=== PATIENT | female | born 1950 | race Caucasian/White ===

== ENCOUNTER → 2020-09-13 15:09 | Outpatient (BNVA) | payer MEDICARE, SELFPAY | PROVIDERS: PCP Internal Medicine; Visit Provider Hospitalist | DX: J44.9 Chronic obstructive pulmonary disease, unspecified (principal); I51.7 Cardiomegaly; G47.34 Idiopathic sleep related nonobstructive alveolar hypoventilation; Z79.899 Other long term (current) drug therapy | CPT/HCPCS: 99212 ==

== ENCOUNTER → 2021-03-27 10:01 | Outpatient (BNVA) | payer MEDICARE, SELFPAY | PROVIDERS: PCP Internal Medicine; Visit Provider Hospitalist | DX: J44.9 Chronic obstructive pulmonary disease, unspecified (principal); G47.33 Obstructive sleep apnea (adult) (pediatric); I51.7 Cardiomegaly; Z79.899 Other long term (current) drug therapy | CPT/HCPCS: 99212 ==

== ENCOUNTER → 2021-04-17 09:36 | Outpatient (REF) | payer MEDICARE, SELFPAY | LOC: HO.SL 09:36 | PROVIDERS: PCP Internal Medicine; Visit Provider Hospitalist | DX: G47.33 Obstructive sleep apnea (adult) (pediatric) (principal) | CPT/HCPCS: 95806 ==

== ENCOUNTER → 2021-06-03 08:53 | Outpatient (BNVA) | payer MEDICARE, SELFPAY | PROVIDERS: PCP Internal Medicine; Visit Provider Hospitalist | DX: J44.9 Chronic obstructive pulmonary disease, unspecified (principal); I51.7 Cardiomegaly; G47.33 Obstructive sleep apnea (adult) (pediatric) | CPT/HCPCS: 99212 ==

== ENCOUNTER → 2021-08-29 09:01 | Outpatient (BNVA) | payer MEDICARE, SELFPAY | PROVIDERS: PCP Internal Medicine; Visit Provider Hospitalist | DX: G47.33 Obstructive sleep apnea (adult) (pediatric) (principal); J44.9 Chronic obstructive pulmonary disease, unspecified; I51.7 Cardiomegaly | CPT/HCPCS: 99212 ==

== ENCOUNTER 2022-02-20 08:28 | Outpatient (REF) | payer MEDICARE, SELFPAY ==
--- NOTE | ~2022-02-20 | XR_ITS ---
EXAMINATION: XR CHEST CLINICAL INFORMATION: Cardiomegaly COMPARISON: None TECHNIQUE: 2 views of the chest were obtained. FINDINGS: The lungs are well-expanded and clear. The heart size and pulmonary vascularity is normal. There is moderate ventral spondylosis dorsal spine. XR/XR chest 2V IMPRESSION: No acute cardiopulmonary process seen.
== END 2022-02-20 08:29 | disposition home or self-care (01) ==
LOC: HO.XRAY 08:28
PROVIDERS: PCP Internal Medicine; Visit Provider Hospitalist
DX: I51.7 Cardiomegaly (principal)
CPT/HCPCS: 71046

== ENCOUNTER → 2022-02-28 08:52 | Outpatient (BNVA) | payer MEDICARE, SELFPAY | PROVIDERS: PCP Internal Medicine; Visit Provider Hospitalist | DX: J44.9 Chronic obstructive pulmonary disease, unspecified (principal); I51.7 Cardiomegaly; G47.33 Obstructive sleep apnea (adult) (pediatric) | CPT/HCPCS: 99212 ==

== ENCOUNTER → 2022-09-16 10:17 | Outpatient (BNVA) | payer MEDICARE, SELFPAY | PROVIDERS: PCP Internal Medicine; Visit Provider Hospitalist | DX: J44.9 Chronic obstructive pulmonary disease, unspecified (principal); I51.7 Cardiomegaly; G47.33 Obstructive sleep apnea (adult) (pediatric) | CPT/HCPCS: 99212 ==

== ENCOUNTER → 2023-01-27 08:55 | Outpatient (BNVA) | payer MEDICARE, SELFPAY | PROVIDERS: PCP Internal Medicine; Visit Provider Hospitalist | DX: J44.9 Chronic obstructive pulmonary disease, unspecified (principal); I51.7 Cardiomegaly; E66.2 Morbid (severe) obesity with alveolar hypoventilation; Z68.37 Body mass index [BMI] 37.0-37.9, adult; Z99.81 Dependence on supplemental oxygen; Z99.89 Dependence on other enabling machines and devices | CPT/HCPCS: 99212 ==

== ENCOUNTER → 2023-03-06 12:45 | Outpatient (BNVA) | payer MEDICARE, SELFPAY | PROVIDERS: PCP Internal Medicine; Visit Provider Nurse Practitioner Family | DX: J44.9 Chronic obstructive pulmonary disease, unspecified (principal); R05.9 Cough, unspecified | CPT/HCPCS: 99212 ==

== ENCOUNTER 2023-09-24 14:12 | Outpatient (AMB) | payer MEDICARE, SELFPAY ==
--- NOTE | 2023-09-24 14:33 | MHC.OFFVIS ---
Intake Vital Signs 09/24/23 14:37 Height 5 ft 1 in Weight 200 lb BMI 37.8 BP 150/80 H Pulse 84 Pulse Oximetry (%) 96 Intake Visit Reasons: cough Allergies Latex Allergy (Severe, Uncoded 03/06/23 13:09) Anaphylaxis HPI HPI Comments History of Present Illness Details The patient is a 73-year-old woman with a known history of asthma in addition to obstructive sleep apnea and obesity hypoventilation syndrome. She has been stable on Flovent and ProAir. However, her Flovent is very expensive and she cannot afford to take care. She has been noticing worsening shortness of breath having to use a rescue inhaler at least once a day. She does developed cough in addition to dyspnea on exertion. [id number]-[id number] severity. Denies any recent use of prednisone hospitalizations for any flares. At nighttime she does use oxygen. She did have an overnight oximetry demonstrating that she spent 12 minutes below 88%. Therefore, she was started on oxygen at 2 L at night and sees to be affecting beneficial. She does get this through [facility]. In addition to that she did have a chest x-ray which was personally reviewed by me demonstrating what appears to be some calcifications to the hilar lymph nodes in addition to his like increased cardiac silhouette. 09/16/2022 the patient is here for a pulmonary follow-up visit. The patient overall is doing well. She recently returned from a 2-3 week cruise. She did very well initially but then she came back and said started developing worsening cough and shortness of breath. She became very fatigue after the prolonged cruise. Now she is back to her baseline. She is using her inhaler. Because of her ongoing symptoms the patient did call and she was sent prednisone antibiotics which she has now completed. She also was treated for COVID with PACs Flovent which she tolerated well. Now she is considering another cruise sometime in the springtime to go to [facility]. She is wondering if she can tolerate such a long cruise again specially since she had a hard time with this 1. Therefore, will have her come back to our office for an evaluation prior to that cruise ship and making sure that she has all the medications available for a safe trip. She has been using the CPAP. The CPAP therapy continues to be affecting beneficial. She does use it for more than 4 hours a night. She is considering a travel CPAP. At this point the patient does not need 1 but she can always consider buying 1 and I will give her prescription. The patient also had a chest x-ray back in January 2022 demonstrating no acute disease. 01/27/2023 the patient is here for a pulmonary follow-up visit. The patient overall doing very well. She has continued to tolerate the CPAP. The CPAP therapy continues to be affecting beneficial. She does use it more than 4 hours a night. Her AHI is down to about 1.5. Therefore will continue the current settings. She likes her mask although the nasal pillows to bother her nares a little bit. The date does not bother her enough to change her mask at this time. If they do start bothering her we can try cradle mask instead. She will let me know. She continues use the inhalers with good effect. She has a planned trip to [facility] and also several cruises over the summer. She is going to be mindful about COVID-19 since she got COVID during her last trip. She will have a 95 masks will be careful with crowds. She is concerned about her cough. Will give her cough medication for her to be able to use effectively specially when she is traveling and also during the daytime. 09/24/2023 the patient is here for pulmonary follow-up visit. Overall she is feeling better. She went on 3 [place] back to back and she did get sick when she was on her last screws. She went to seek medical care at the [facility] medical consult clinic. She was given nebulized therapy in addition to additional medications. She overall feels better. She is continues uses Symbicort twice a day. Still still having a dry cough and sometimes some chest tightness. Will go ahead and optimize respiratory therapy from Symbicort to Breztri at this time. In addition to that she does have her albuterol and has a rescue nebulizer that she can use as needed. She already got vaccinated for pneumonia and also COVID and flu. She does need to get her ARDS the vaccine. I did encourage her to wait to next week to make sure that she was fully better before doing so. [facility] Medical History (Updated 03/06/23 @ 13:46 by Anita Lagos NP) Hyperlipidemia Hypertension, essential Diabetes mellitus type 2, controlled SACHIN (obstructive sleep apnea) Nocturnal hypoxemia Cardiomegaly Asthma-COPD overlap syndrome Family History (Updated 09/13/20 @ 15:49 by Lico Castillo MD) Other SACHIN (obstructive sleep apnea) Social History (Updated 03/27/21 @ 10:12 by Cyndee Coker Reina) Patient Tobacco Use Status: Never used Tobacco Review of Systems Const Denies daytime sleepiness, Denies night sweats and Reports weight gain ENT Denies change in voice, Denies lip swelling, Denies mouth pain, Reports nasal congestion, Reports nasal discharge and Denies tongue swelling Card Denies chest pain and Denies dyspnea on exertion Resp Reports cough, Denies dyspnea on exertion and Denies wheezing GI Denies abdominal pain Musc Denies no additional complaints Neuro Denies Neuro-related abnormal movements Psych Denies no additional complaints Aly/Lymph Denies easy bleeding and Denies lymphadenopathy Aller/Immun Denies lip swelling, Denies tongue swelling and Denies wheezing Physical Exam Vital Signs: Last Vital Signs Pulse 84 09/24/23 14:37 BP 150/80 H 09/24/23 14:37 Pulse Ox 96 09/24/23 14:37 BMI result Body Mass Index 37.8 Const General: alert Eyes Pupils: Equal, round and reactive pupils present Neck Neck: Yes normal visual inspection, Yes full ROM and Yes no lymphadenopathy Chest Chest palpation & inspection: normal inspection of the chest Resp Auscultation: no rhonchi, no wheezes and diminished lung sounds Cardio Rate: regular rate Rhythm: regular rhythm Heart sounds: S1 normal heart sound present and S2 normal heart sound present GI Palpation (GI): Soft to palpation and nontender Auscultation: normal bowel sounds Skin General skin exam: rashes and/or lesions noted Neuro Cranial nerves: Yes Equal, round and reactive pupils present Assessment & Plan Assessment & Plan (1) Asthma-COPD overlap syndrome: Code(s): J44.9 - Chronic obstructive pulmonary disease, unspecified (2) SACHIN (obstructive sleep apnea): Code(s): G47.33 - Obstructive sleep apnea (adult) (pediatric) Plan Continue APAP therapy hold Symbicort start Breztri Allergy therapy as needed cough medicines SARAH as needed F/U 6 months Medications: New jkrklwfkta-bgdpapit-amwsgljrcl 160-9-4.8 mcg/actuation (Breztri Aerosphere) 2 inhalations inhalation BID 30 days 10.7 grams 1RF Refilled albuterol sulfate 2.5 mg (3 mL) inhalation Q4H PRN 180 mL 11RF shortness of breath or wheezing J44.9 - Chronic obstructive pulmonary disease, unspecified albuterol sulfate 90 mcg/actuation 2 puffs PO Q6H PRN 1 ea 11RF for wheezing Coding Level of Care Code Est Pt Level 4 (94086) Diagnoses Asthma-COPD overlap syndrome J44.9 SACHIN (obstructive sleep apnea) G47.33 Time Spent (min) 16
[2023-09-24 14:37] VITALS: BP 150/80; PULSE 84; O2SAT 96; BMI 37.8
== END 2023-09-24 14:59 | disposition home or self-care (01) ==
PROVIDERS: PCP Internal Medicine; Visit Provider Hospitalist
DX: J44.9 Chronic obstructive pulmonary disease, unspecified (principal); G47.33 Obstructive sleep apnea (adult) (pediatric)
CPT/HCPCS: 99214

== ENCOUNTER → 2023-09-24 14:12 | Outpatient (BNVA) | payer MEDICARE, SELFPAY | PROVIDERS: PCP Internal Medicine; Visit Provider Hospitalist | DX: J44.9 Chronic obstructive pulmonary disease, unspecified (principal); G47.33 Obstructive sleep apnea (adult) (pediatric); G47.36 Sleep related hypoventilation in conditions classified elsewhere; I10 Essential (primary) hypertension | CPT/HCPCS: 99212 ==

== ENCOUNTER 2024-09-20 09:44 | Outpatient (AMB) | payer MEDICARE, SELFPAY ==
--- NOTE | 2024-09-20 09:49 | MHC.OFFVIS ---
Vital Signs 09/20/24 09:50 Height 5 ft 1 in Weight 192 lb 14.472 oz BMI 36.4 BP 130/70 Blood Pressure Location Rt brachial Position Sitting Pulse 82 Pulse Source Pulse Oximeter Pulse Oximetry (%) 98 Oxygen Delivery Method Room Air Intake Visit Reasons: dry cough Professional System Administrator Required: No Accompanied by: Self / Same As Patient Allergies Latex Allergy (Severe, Uncoded 09/20/24 09:55) Anaphylaxis Medication List - Last Reconciled 09/20/24 by Keturah Rios LPN albuterol sulfate 2.5 mg (3 mL) inhalation Q4H PRN albuterol sulfate 90 mcg/actuation 2 puffs PO Q6H PRN benzonatate 200 mg PO BID PRN 30 days oovhradvxw-kgxahlxi-xoujezkcqa 160-9-4.8 mcg/actuation (Breztri Aerosphere) 2 inhalations PO BID cholecalciferol (vitamin D3) 25 mcg PO DAILY codeine-guaifenesin 10-100 mg/5 mL 10 mL PO Q6H PRN 10 days dulaglutide (Trulicity) mg subcut epinephrine subcut ONCE PRN fexofenadine 60 mg PO BID PRN hydrochlorothiazide 25 mg PO DAILY lorazepam 0.5 mg PO BEDTIME PRN lorazepam 1 mg PO losartan 50 mg PO DAILY metformin 2,000 mg PO DAILY nebulizers As directed nirmatrelvir-ritonavir 300 mg (150 mg x 2)-100 mg (Paxlovid) take TWO 150 mg tablets of nirmatrelvir with ONE 100 mg tablet of ritonavir twice daily for 5 days PO 5 days pravastatin 40 mg PO DAILY Symbicort 160-4.5 mcg/actuation (budesonide-formoterol) 2 puffs PO BID NS HPI Comments Details: The patient is a 74-year-old woman with a known history of asthma in addition to obstructive sleep apnea and obesity hypoventilation syndrome. She has been stable on Flovent and ProAir. However, her Flovent is very expensive and she cannot afford to take care. She has been noticing worsening shortness of breath having to use a rescue inhaler at least once a day. She does developed cough in addition to dyspnea on exertion. Lzkw-qw-npnlneew severity. Denies any recent use of prednisone hospitalizations for any flares. At nighttime she does use oxygen. She did have an overnight oximetry demonstrating that she spent 12 minutes below 88%. Therefore, she was started on oxygen at 2 L at night and sees to be affecting beneficial. She does get this through [facility] [place]. In addition to that she did have a chest x-ray which was personally reviewed by me demonstrating what appears to be some calcifications to the hilar lymph nodes in addition to his like increased cardiac silhouette. 09/16/2022 the patient is here for a pulmonary follow-up visit. The patient overall is doing well. She recently returned from a 2-3 week cruise. She did very well initially but then she came back and said started developing worsening cough and shortness of breath. She became very fatigue after the prolonged cruise. Now she is back to her baseline. She is using her inhaler. Because of her ongoing symptoms the patient did call and she was sent prednisone antibiotics which she has now completed. She also was treated for COVID with PACs Flovent which she tolerated well. Now she is considering another cruise sometime in the to go to [facility]. She is wondering if she can tolerate such a long cruise again specially since she had a hard time with this 1. Therefore, will have her come back to our office for an evaluation prior to that cruise ship and making sure that she has all the medications available for a safe trip. She has been using the CPAP. The CPAP therapy continues to be affecting beneficial. She does use it for more than 4 hours a night. She is considering a travel CPAP. At this point the patient does not need 1 but she can always consider buying 1 and I will give her prescription. The patient also had a chest x-ray back in January 2022 demonstrating no acute disease. 01/27/2023 the patient is here for a pulmonary follow-up visit. The patient overall doing very well. She has continued to tolerate the CPAP. The CPAP therapy continues to be affecting beneficial. She does use it more than 4 hours a night. Her AHI is down to about 1.5. Therefore will continue the current settings. She likes her mask although the nasal pillows to bother her nares a little bit. The date does not bother her enough to change her mask at this time. If they do start bothering her we can try cradle mask instead. She will let me know. She continues use the inhalers with good effect. She has a planned trip to [facility] and also several cruises over the summer. She is going to be mindful about COVID-19 since she got COVID during her last trip. She will have a 95 masks will be careful with crowds. She is concerned about her cough. Will give her cough medication for her to be able to use effectively specially when she is traveling and also during the daytime. 09/24/2023 the patient is here for pulmonary follow-up visit. Overall she is feeling better. She went on 3 [place] back to back and she did get sick when she was on her last screws. She went to seek medical care at the [facility] medical consult clinic. She was given nebulized therapy in addition to additional medications. She overall feels better. She is continues uses Symbicort twice a day. Still still having a dry cough and sometimes some chest tightness. Will go ahead and optimize respiratory therapy from Symbicort to Breztri at this time. In addition to that she does have her albuterol and has a rescue nebulizer that she can use as needed. She already got vaccinated for pneumonia and also COVID and flu. She does need to get her ARDS the vaccine. I did encourage her to wait to next week to make sure that she was fully better before doing so. 09/20/2024 the patient is here for pulmonary follow-up visit. The patient overall has been doing well. She did go on a cruise and was sick. She did require antibiotics during that episode. Now she is back to her baseline. She is using her inhalers with good effect. No recent imaging studies to review. In the meantime she continues use her CPAP. CPAP therapy has been affecting beneficial. She does use it for more than 4 hours a night. The patient has an adequate AHI based on her CPAP use. No need to adjust the pressures. She is wondering about a travel CPAP. At this point I did show her a few options but these would have to be costly options that she would have to buy her own. She will consider. Again was give her a prescription for 1 if she decides to by 1. She will return 6 months and will reassess her respiratory issues specially prior to her next cruise travel plans. [facility] Medical History (System 12/15/23 @ 07:36 by Jemima Camara) Hyperlipidemia Hypertension, essential Diabetes mellitus type 2, controlled SACHIN (obstructive sleep apnea) Nocturnal hypoxemia Cardiomegaly Asthma-COPD overlap syndrome Family History (System 12/15/23 @ 07:36 by Jemima Camara) Other SACHIN (obstructive sleep apnea) Social History Patient Tobacco Use Status: Never used Tobacco Review of Systems Const Denies daytime sleepiness, Denies night sweats and Reports weight gain ENT Denies change in voice, Denies lip swelling, Denies mouth pain, Reports nasal congestion, Reports nasal discharge and Denies tongue swelling Card Denies chest pain and Denies dyspnea on exertion Resp Reports cough, Denies dyspnea on exertion and Denies wheezing GI Denies abdominal pain Musc Denies no additional complaints Neuro Denies Neuro-related abnormal movements Psych Denies no additional complaints Aly/Lymph Denies easy bleeding and Denies lymphadenopathy Aller/Immun Denies lip swelling, Denies tongue swelling and Denies wheezing Physical Exam Vital Signs: Last Vital Signs Pulse 82 09/20/24 09:50 BP 130/70 09/20/24 09:50 Pulse Ox 98 09/20/24 09:50 Oxygen Delivery Method Room Air 09/20/24 09:50 BMI result Body Mass Index 36.4 Const General: alert Eyes Pupils: Equal, round and reactive pupils present Neck Neck: Yes normal visual inspection, Yes full ROM and Yes no lymphadenopathy Chest Chest palpation & inspection: normal inspection of the chest Resp Auscultation: no rhonchi, no wheezes and diminished lung sounds Cardio Rate: regular rate Rhythm: regular rhythm Heart sounds: S1 normal heart sound present and S2 normal heart sound present GI Palpation (GI): Soft to palpation and nontender Auscultation: normal bowel sounds Skin General skin exam: rashes and/or lesions noted Neuro Cranial nerves: Yes Equal, round and reactive pupils present Assessment & Plan Assessment & Plan (1) Asthma-COPD overlap syndrome: Code(s): J44.9 - Chronic obstructive pulmonary disease, unspecified Category: Medical (2) SACHIN (obstructive sleep apnea): Code(s): G47.33 - Obstructive sleep apnea (adult) (pediatric) Category: Medical Plan Continue APAP therapy hold Symbicort start Breztri Allergy therapy as needed cough medicines SARAH as needed F/U 6 months Medications: Refilled codeine-guaifenesin 10-100 mg/5 mL 10 mL PO Q6H PRN 300 mL 0RF cough 10 days Coding Level of Care Code Est Pt Level 4 (55241) Diagnoses Asthma-COPD overlap syndrome J44.9 SACHIN (obstructive sleep apnea) G47.33 Time Spent (min) 16
[2024-09-20 09:50] VITALS: BP 130/70; PULSE 82; O2SAT 98; BMI 36.4
== END 2024-09-20 10:23 | disposition home or self-care (01) ==
PROVIDERS: PCP Internal Medicine; Visit Provider Hospitalist
DX: J44.9 Chronic obstructive pulmonary disease, unspecified (principal); G47.33 Obstructive sleep apnea (adult) (pediatric)
CPT/HCPCS: 99214

== ENCOUNTER → 2024-09-20 09:44 | Outpatient (BNVA) | payer MEDICARE, SELFPAY | PROVIDERS: PCP Internal Medicine; Visit Provider Hospitalist | DX: J44.9 Chronic obstructive pulmonary disease, unspecified (principal); G47.33 Obstructive sleep apnea (adult) (pediatric); Z99.89 Dependence on other enabling machines and devices | CPT/HCPCS: 99212 ==

== ENCOUNTER 2025-03-23 09:36 | Outpatient (AMB) | payer MEDICARE, SELFPAY ==
[2025-03-23 09:42] VITALS: BP 130/76; PULSE 84; O2SAT 93; BMI 37.5
--- NOTE | 2025-03-23 09:42 | A.OFFVIS_ITS ---
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 She has been stable on Flovent and ProAir. However, her Flovent is very expensive and she cannot afford to take care. She has been noticing worsening shortness of breath having to use a rescue inhaler at least once a day. She does developed cough in addition to dyspnea on exertion. Ejjv-yx-keiyldsx severity. Denies any recent use of prednisone hospitalizations for any flares. At nighttime she does use oxygen. She did have an overnight oximetry demonstrating that she spent 12 minutes below 88%. Therefore, she was started on oxygen at 2 L at night and sees to be affecting beneficial. She does get this through [facility]. In addition to that she did have a chest x-ray which was personally reviewed by me aureliano palomaresting what appears to be some calcifications to the hilar lymph nodes in addition to his like increased cardiac silhouette. 09/16/2022 the patient is here for a pulmonary follow-up visit. The patient overall is doing well. She recently returned from a 2-3 week cruise. She did very well initially but then she came back and said started developing worsening cough and shortness of breath. She became very fatigue after the prolonged cruise. Now she is back to her baseline. She is using her inhaler. Because of her ongoing symptoms the patient did call and she was sent prednisone antibiotics which she has now completed. She also was treated for COVID with PACs Flovent which she tolerated well. Now she is considering another cruise sometime in the to go to [facility]. She is wondering if she can tolerate such a long cruise again specially since she had a hard time with this 1. Therefore, will have her come back to our office for an evaluation prior to that cruise ship and making sure that she has all the medications available for a safe trip. She has been using the CPAP. The CPAP therapy continues to be affecting beneficial. She does use it for more than 4 hours a night. She is considering a travel CPAP. At this point the patient does not need 1 but she can always consider buying 1 and I will give her prescription. The patient also had a chest x-ray back in January 2022 demonstrating no acute disease. 01/27/2023 the patient is here for a pulmonary follow-up visit. The patient overall doing very well. She has continued to tolerate the CPAP. The CPAP therapy continues to be affecting beneficial. She does use it more than 4 hours a night. Her AHI is down to about 1.5. Therefore will continue the current settings. She likes her mask although the nasal pillows to bother her nares a little bit. The date does not bother her enough to change her mask at this time. If they do start bothering her we can try cradle mask instead. She will let me know. She continues use the inhalers with good effect. She has a planned trip to [facility] and also several cruises over the summer. She is going to be mindful about COVID-19 since she got COVID during her last trip. She will have a 95 masks will be careful with crowds. She is concerned about her cough. Will give her cough medication for her to be able to use effectively specially when she is traveling and also during the daytime. 09/24/2023 the patient is here for pulmonary follow-up visit. Overall she is feeling better. She went on 3 [place] back to back and she did get sick when she was on her last screws. She went to seek medical care at the [facility]. She was given nebulized therapy in addition to additional medications. She overall feels better. She is continues uses Symbicort twice a day. Still still having a dry cough and sometimes some chest tightness. Will go ahead and optimize respiratory therapy from Symbicort to Breztri at this time. In addition to that she does have her albuterol and has a rescue nebulizer that she can use as needed. She already got vaccinated for pneumonia and also COVID and flu. She does need to get her ARDS the vaccine. I did encourage her to wait to next week to make sure that she was fully better before doing so. 09/20/2024 the patient is here for pulmonary follow-up visit. The patient overall has been doing well. She did go on a cruise and was sick. She did require antibiotics during that episode. Now she is back to her baseline. She is using her inhalers with good effect. No recent imaging studies to review. In the meantime she continues use her CPAP. CPAP therapy has been affecting beneficial. She does use it for more than 4 hours a night. The patient has an adequate AHI based on her CPAP use. No need to adjust the pressures. She is wondering about a travel CPAP. At this point I did show her a few options but these would have to be costly options that she would have to buy her own. She will consider. Again was give her a prescription for 1 if she decides to by 1. She will return 6 months and will reassess her respiratory issues specially prior to her next cruise travel plans. 03/23/2025 the patient is here for pulmonary follow-up visit. Overall the patient has been doing well. She continues uses CPAP every night. CPAP therapy has been affecting beneficial. She does use it for more than 4 hours a night. She is using a mask that sometimes feels like she is bothered by it. She wants to try new mask. I will go ahead and request an N30 I AirTouch mask kit for her so she can find her eye size. Currently she uses extra small. Will request the mask from her current [employer] company, [employer]. She will keep the same settings from the CPAP. In meantime asthma has been stable. She has not had to use her albuterol inhaler which is reassuring. Her last chest x-ray was back in 2021 which is without any acute disease or therefore no additional imaging studies warranted. She still has some shortness of breath with activity but minimal and it does get better when she rests. She will monitor closely her symptoms and they worsen she will call. Otherwise will follow-up in a year's time. [facility] Medical History (System 12/15/23 @ 07:36 by Jemima Camara) Hyperlipidemia Hypertension, essential Diabetes mellitus type 2, controlled SACHIN (obstructive sleep apnea) Nocturnal hypoxemia Cardiomegaly Asthma-COPD overlap syndrome Family History (System 12/15/23 @ 07:36 by Jemima Camara) Other SACHIN (obstructive sleep apnea) Social History Patient Tobacco Use Status: Never used Tobacco Review of Systems Const Denies daytime sleepiness, Denies night sweats and Reports weight gain ENT Denies change in voice, Denies lip swelling, Denies mouth pain, Reports nasal congestion, Reports nasal discharge and Denies tongue swelling Card Denies chest pain and Denies dyspnea on exertion Resp Reports cough, Denies dyspnea on exertion and Denies wheezing GI Denies abdominal pain Musc Denies no additional complaints Neuro Denies Neuro-related abnormal movements Psych Denies no additional complaints Aly/Lymph Denies easy bleeding and Denies lymphadenopathy Aller/Immun Denies lip swelling, Denies tongue swelling and Denies wheezing Physical Exam Vital Signs: Last Vital Signs Pulse 84 03/23/25 09:42 BP 130/76 03/23/25 09:42 Pulse Ox 93 03/23/25 09:42 Oxygen Delivery Method Room Air 03/23/25 09:42 BMI result Body Mass Index 37.5 Const General: alert Eyes Pupils: Equal, round and reactive pupils present Neck Neck: Yes normal visual inspection, Yes full ROM and Yes no lymphadenopathy Chest Chest palpation & inspection: normal inspection of the chest Resp Auscultation: no rhonchi, no wheezes and diminished lung sounds Cardio Rate: regular rate Rhythm: regular rhythm Heart sounds: S1 normal heart sound present and S2 normal heart sound present GI Palpation (GI): Soft to palpation and nontender Auscultation: normal bowel sounds Skin General skin exam: rashes and/or lesions noted Neuro Cranial nerves: Yes Equal, round and reactive pupils present Assessment & Plan Assessment & Plan (1) Asthma-COPD overlap syndrome: Code(s): J44.9 - Chronic obstructive pulmonary disease, unspecified Category: Medical (2) SACHIN (obstructive sleep apnea): Code(s): G47.33 - Obstructive sleep apnea (adult) (pediatric) Category: Medical Plan Continue APAP therapy, change mask N30i airtouch continue Breztri Allergy therapy as needed cough medicines SARAH as needed F/U 8-12 months Coding Level of Care Code Est Pt Level 4 (10976) Diagnoses Asthma-COPD overlap syndrome J44.9 SACHIN (obstructive sleep apnea) G47.33 Time Spent (min) 16
--- OUTSIDE RECORDS SUMMARY | 2025-03-23 09:55 | XMS_ITS | Clinical Summary ---
Author Organization [facility] [address] Address [address] [place] [address] Phone Care Team Providers Care Tax Manager Public Name Role Phone Candy Vera MD Primary Care Provider [phone] Allergies Active Allergy Reactions Criticality Noted Date Comments Dog Dander 03/01/2018 Latex Anaphylaxis High 11/08/2012 Medications losartan (COZAAR) 50 mg tablet TAKE 1 TABLET BY MOUTH DAILY 100 tablet 2 09/30/20 24 Active hydroCHLOROthi azide (HYDRODIURIL) 25 mg tablet TAKE 1 TABLET BY MOUTH DAILY 100 tablet 2 09/30/20 24 Active albuterol HFA (PROAIR HFA ; PROVENTIL HFA ; VENTOLIN HFA) 90 mcg/actuation inhaler Inhale 2 Puffs into the lungs every 4 hours as needed for Cough or Wheezing. 01/06/20 19 Active budesonide-gly copyr-formoter ol (Breztri Aerosphere) 160-9-4.8 mcg/actuation HFA aerosol inhaler inhaler INHALE 2 PUFFS BY MOUTH TWICE DAILY 11/30/19 24 Active calcium carbonate-vit D3-min 600 mg-10 mcg (400 unit) tablet Take 1 Tab by mouth daily. Active fluticasone propionate (FLONASE) 50 mcg/actuation nasal spray 2 Sprays by Nasal route daily. 03/01/20 18 Active LORazepam (ATIVAN) 1 mg tablet TAKE 1 TABLET BY MOUTH 1 HOUR BEFORE DENTAL APPOINTMENT. DO NOT DRIVE OR OPERATE ANY MACHINERY WHILST TAKING THIS MEDICATION 02/04/20 23 Active metFORMIN (GLUCOPHAGE) 500 mg tablet 05/10/20 24 Active semaglutide (Ozempic) 0.25 mg or 0.5 mg(2 mg/1.5 mL) injection pen Inject into the skin. Active pravastatin (PRAVACHOL) 40 mg tablet Take 1 tablet (40 mg total) by mouth at bedtime. 100 tablet 11/18/19 25 Active Accu-Chek Softclix Lancets 08/26/20 Active EPINEPHrine (EPIPEN) 0.3 mg/0.3 mL injection Inject 0.3 mL (0.3 mg total) into the thigh if needed for anaphylaxis. 2 each 2 02/28/20 Active EPINEPHrine (EpiPen 2-Shine) 0.3 mg/0.3 mL injection Inject 1 Each as directed as needed for Other (anaphylaxis) . 12/31/19 025 Discontinued EPINEPHrine (EPIPEN) 0.3 mg/0.3 mL injection Inject 0.3 mL (0.3 mg total) under the skin if needed for anaphylaxis. 2 each 2 02/25/20 25 025 Discontinued(Re order) Active Problems Problem Noted Date Diagnosed Date Multinodular goiter (nontoxic) 01/15/2025 Assessment & Plan (01/23/2025 9:31 AM EDT): Asthma 10/05/2024 Graves' disease 10/05/2024 Overview (10/05/2024): was on PTU< but off it for 4 yrs, follows with Dr Nica Taylor, in [place], [place] HTN (hypertension) 10/05/2024 Assessment & Plan (01/23/2025 9:31 AM EDT): Severe obesity (BMI 35.0-35. 9 with comorbidity) ([facility] V24, [facility] V28) 10/05/2024 Osteopenia 08/07/2022 Microalbuminuria 05/10/2019 Assessment & Plan (01/23/2025 9:31 AM EDT): Onychomycosis 05/10/2019 Allergic rhinitis due to pollen 10/05/2018 Type 2 diabetes mellitus wit h renal manifestations ([facility] V24, [facility] V28) 07/06/2018 Assessment & Plan (01/23/2025 9:31 AM EDT): Orders: Hemoglobin A1c; Future PLMD (periodic limb movement disorder) 7 Obstructive sleep apnea 01/25/2017 Overview (10/05/2024): RBMG Polysomnogram with 2 liters supplemental oxygen: Date 04/15/2017; SE 53%; SM 45%; REM 19%; RDI 10 (AHI 5), worse in REM (RDI 29 - AHI 17), Central apneas 0; Obstructive apneas 18; Mixed apneas 0; hypopneas 10; RERAs 16; average oxygen saturation 96% (lowest 93% - without saturations <88% for 5% or more of study); PLMs 98. Sleep related hypoventilatio n in conditions classified elsewhere 01/25/2017 Hyperlipidemia 04/18/2014 Assessment & Plan (01/23/2025 9:31 AM EDT): Knee arthropathy 03/10/2013 History of basal cell carcinoma (BCC) of skin Overview (01/15/2025): : facial, NE Derm History of squamous cell carcinoma Overview (01/15/2025): Colin groin Encounters Date Type Department Care Team Description 01/23/2025 8:30 AM EDT Office Visit Adult Medicine [address] [phone] Candy Vera MD Encounter for annual wellness visit (AWV) in Medicare patient (Primary Dx); Primary hypertension; Other hyperlipidemia; Type 2 diabetes mellitus with diabetic microalbuminuria, without long-term current use of insulin ([facility] V24, [facility] V28); Multinodular goiter (nontoxic); Microalbuminuria from Last 3 Months Immunizations Name Administration Dates Next Due Influenza trivalent, 0.5mL ( Fluad) 65yo and older 08/06/2023,09/23/2022,09/24/2021,09/11,08/19/2019,08/06/2018,09/24/2017 ,09/05/2015 Influenza trivalent, 0.5mL ( Fluzone High-dose) 65yo and older 08/01/2024 Pfizer (ages 12 & older) Biv alent, COVID-19 07/21/2023,02/12/2022 Pneumococcal conjugate 13 va lent (Prevnar 13, PCV13) 2mo and older 10/16/2016 Pneumococcal polysaccharide 23 valent (Pneumovax 23) 2yo and older 07/05/2013 Respiratory syncytial virus (RSV), unspecified 12/11/2023,12/11/2023 Tdap Tetanus diptheria acell ular pertussis (Boostrix; Adacel) 7yo and older 10/29/2024,02/06/2015 Zoster Live 06/26/2014 Zoster recombinant (Shingrix ) 19yo and older 08/27/2020,06/26/2020 Surgical History Surgery Date Site/Laterality Comments SCREENING MAMMOGRAM 10/06/2024 Bilateral Medical History Medical History Date Comments HTN (hypertension) Hyperlipidemia 04/18/2014 Thyroid nodule Asthma History of basal cell carcin mik (BCC) of skin : facial, NE Derm Onychomycosis 05/10/2019 Severe obesity (BMI 35.0-35. 9 with comorbidity) ([facility] V24, [facility] V28) 10/05/2018 Microalbuminuria 05/10/2019 Type 2 diabetes mellitus wit h renal manifestations ([facility] V24, [facility] V28) 07/06/2018 Sleep-related hypoventilation 01/25/2017 PLMD (periodic limb movement disorder) 03/03/2017 Obstructive sleep apnea 01/25/2017 RBMG Marko ysomnogram with 2 liters supplemental oxygen: Date 04/15/2017; SE 53%; SM 45%; REM 19%; RDI 10 (AHI 5), worse in REM (RDI 29 - AHI 17), Central apneas 0; Obstructive apneas 18; Mixed apneas 0; hypopneas 10; RERAs 16; average oxygen saturation 96% (lowest 93% - without saturations <88% for 5% or more of study); PLMs 98. Nocturnal hypoxia 10/05/2018 Allergic rhinitis due to pollen 10/05/2018 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 oxygen therapy 03/03/2017 History of squamous cell carcinoma 05/10/2019 L groin Graves' disease 10/05/2024 was on PTU< but off it for 4 yrs, follows with Dr Nica Taylor, in [place], [place] Family History Medical History Relation Name Comments Other: multiple sclerosis Brother Hypertension Mother cholesterol Thyroid disease Sister 1 sister has DM and HTN Breast cancer Neg Hx Colon cancer Neg Hx Ovarian cancer Neg Hx Relation Name Status Comments Brother Mother Sister Social History Tobacco Use Types Packs/Day Years Used Date Smoking Tobacco: Never Smokeless Tobacco: Never Tobacco Cessation:Counseling Given: Not Answered Alcohol Use Standard Drinks/Week Comments Yes 0 (1 standard drink = 0.6 oz pur e alcohol) Housing Instability Answer Date Recorde d Are you worried that in the next 2 months you may not have stable housing? No 01/16/2025 Food Access & Nutrition Answer Date Rec orded Do you have access to a vari ety of food including fruits and vegetables? Yes 01/16/2025 Access to Healthcare Answer Date Record ed Within the last 3 months, ho w many times did you visit the emergency department for your medical care? 0 01/16/2025 Health Literacy Answer Date Recorded How often do you need to hav e someone help you when you read instructions, pamphlets, or other written material from your doctor or pharmacy? Rarely 01/16/2025 Caregiver: How often do you need to have someone help you when you read instructions, pamphlets, or other written material from your doctor or pharmacy? Not on file 01/16/2025 Financial Risk Answer Date Recorded How hard is it for you to pa y for the very basics like food, housing, medical care, and air conditioning / heating? Not very hard 01/16/2025 Transportation Answer Date Recorded Has the lack of transportati on kept you from meetings, work, or from getting things needed for daily living? No Has the lack of transportati on kept you from medical appointments or from getting medications? No 01/16/2025 Social Isolation Answer Date Recorded How often do you feel lonely or isolated from th ose around you? Never 01/16/2025 Food Risk Answer Date Recorded Within the past 12 months we worried whether our food would run out before we got money to buy more. Never true 01/16/2025 Within the past 12 months th e food we bought just didn't last and we didn't have money to get more. Never true 01/16/2025 Dependent Care Answer Date Recorded Do you need help finding or paying for care for your loved ones. For example, child abuse worker or elderly care for an older adult? No 01/16/2025 Education Answer Date Recorded Do you think completing more education or training, like finishing a GED, going to college, or learning a trade, would be helpful for you? No 01/16/2025 Employment and Income Answer Date Recor ded During the last four weeks, have you been actively looking for work? No 01/16/2025 Living Situation Answer Date Recorded What is your living situation? 0 01/16/2025 Comments Unknown Sex and Gender Information Value Date Recorded Sex Assigned at Not on file Legal Sex Female 1:05 AM EST Gender Identity Not on file Sexual Orientation Not on file Obstetrics History Para Term AB IAB SAB Ectopic Multiple Livin g Live Births 1 1 1 1 Date Outcome GA Total Labor Labor/2nd/3rd Weight Sex Type Anes PTL Brandy A1 A5 Name Clin Term Last Filed Vital Signs Vital Sign Reading Time Taken Comments Blood Pressure 124/72 01/23/2025 8:16 AM EDT Pulse 80 01/23/2025 8:16 AM EDT Temperature 36.4 ??C (97.5 ??F) 01/23/2025 8:16 AM ED T Respiratory Rate 16 01/23/2025 8:16 AM EDT Oxygen Saturation 96% 01/23/2025 8:16 AM EDT Inhaled Oxygen Concentration - - Weight 90.8 kg (200 lb 1.6 oz) 01/23/2025 8:16 A M EDT Height 154.9 cm (5' 1 ) 01/23/2025 8:16 AM EDT Body Mass Index 37.81 01/23/2025 8:16 AM EDT Plan of Treatment Upcoming Encounters Date Type Department Care Team (Late st Contact Info) Description 04/25/2025 9:30 AM EDT Office Visit Adult Medicine [facility] [address] [place] [address] Piedad Lee PA [address] [place] [address] 10/07/2025 8:30 AM EST Appointment Radiology Department - [address] [address] Health Maintenance Due Date Last Done Comments Diabetes: Annual Retina Eye Exam 1960 RSV Immunization Adult Patients (1 - 1-dose 75+ series) 2023 12/11/2023, 12/11/2023 COVID-19 Vaccine ( season) 2025 10/14/2024, 07/21/2023, 11/16/2022, Additional history exists Diabetes: Blood Sugar Control Test (HGBA1C) 07/21/2025 01/18/2025, 07/25/2024, 07/25/2024 Diabetes: Annual Foot Exam 07/25/2025 07/25/2024 Social Influencers of Health Screening 01/16/2026 01/16/2025 Diabetes: Annual Urine Albumin-Creatinine Ratio (uACR) 01/18/2026 01/18/2025, 07/30/2023 Diabetes: Annual GFR (Glomerular Filtration Rate) 01/18/2026 01/18/2025, 07/30/2023 Hypertension/CHF/CAD Annual BMP Blood Test 01/18/2026 01/18/2025, 07/30/2023 Depression Screening 01/23/2026 01/23/2025 Falls Risk Assessment 01/23/2026 01/23/2025 Medicare Annual Wellness Visit 01/23/2026 01/23/2025 Colorectal Cancer Screening: FIT-DNA (Cologuard) 03/30/2026 03/30/2023 Cholesterol Screening (Lipid Panel) 01/18/2030 01/18/2025, 07/25/2024, 07/25/2024 Osteoporosis Screening (Bone Density Screening) 08/06/2032 08/06/2022, 04/02/2018 DTaP,Tdap,and Td Vaccines (3 - Td or Tdap) 10/29/2034 10/29/2024, 02/06/2015 Hepatitis C Screening Completed 03/10/2013 Pneumococcal Vaccine: 50+ Years Completed 10/16/2016, 07/05/2013 Zoster Vaccines Completed 08/27/2020, 10/2019, 06/26/2014 RSV Immunization Patients Under 20 months Aged Out 12/11/2023, 12/11/2023 No longer eligibl e based on patient's age to complete this topic Influenza Vaccine Completed 08/01/2024, , 09/23/2022, Additional history exists Breast Cancer Screening Discontinued 10/06/20, 09/29/2023, 09/19/2022, Additional history exists HIB Vaccines Aged Out No longer eligi ble based on patient's age to complete this topic HPV Vaccines Aged Out No longer eligi ble based on patient's age to complete this topic Hepatitis A Vaccines Aged Out No long er eligible based on patient's age to complete this topic Hepatitis B Vaccines Aged Out No long er eligible based on patient's age to complete this topic IPV Vaccines Aged Out No longer eligi ble based on patient's age to complete this topic MMR Vaccines Aged Out No longer eligi ble based on patient's age to complete this topic Meningococcal ACWY Vaccine Aged Out N o longer eligible based on patient's age to complete this topic Meningococcal B Vaccine Aged Out No l onger eligible based on patient's age to complete this topic Varicella Vaccines Aged Out No longer eligible based on patient's age to complete this topic Procedures Procedure Name Priority Date/Time Associated Diagnosis Comments MICROALBUMIN CREATININE URINE RATIO Routine 01/18/2025 9:44 AM EDT Type 2 diabetes mellitus with diabetic microalbuminuria, without long-term current use of insulin ([facility] V24, [facility] V28) Microalbuminuria COMPREHENSIVE METABOLIC PANEL Routine 01/18/2025 9:44 AM EDT Type 2 diabetes mellitus with diabetic microalbuminuria, without long-term current use of insulin ([facility] V24, [facility] V28) HEMOGLOBIN A1C Routine 01/18/2025 9:44 AM EDT Type 2 diabetes mellitus with diabetic microalbuminuria, without long-term current use of insulin ([facility] V24, [facility] V28) LIPID PANEL WITH REFLEX TO DIRECT LDL Routine 01/18/2025 9:44 AM EDT Mixed hyperlipidemia Type 2 diabetes mellitus with diabetic microalbuminuria, without long-term current use of insulin ([facility] V24, [facility] V28) VITAMIN D 25 HYDROXY Routine 01/18/2025 9:44 AM EDT Osteopenia, unspecified location Type 2 diabetes mellitus with diabetic microalbuminuria, without long-term current use of insulin ([facility] V24, [facility] V28) MG MAMMO DIGITAL SCREENING W DES BILAT Routine 10/06/2024 7:28 AM EST Encounter for screening mammogram for breast cancer DIABETES FOOT EXAM Routine 07/25/2024 FIT-DNA Routine 03/30/2023 DXA BONE DENSITY STUDY 1+ SITS AXIAL SKEL Routine 08/06/2022 9:30 AM EDT Other specified disorders of bone density and structure, unspecified site HEPATITIS C SCREENING Routine 03/10/2013 from Last 3 Months or Most Recently Relevant to Health Maintenance Results * (ABNORMAL) Lipid panel with reflex to direct LDL (01/18/2025 9:44 AM EDT) Cholesterol 168 0 - 200 mg/dL LAB CHEMISTRY METHOD 01/18/2025 2:29 PM EDT [facility] Triglycerides 154(H) 0 - 150 mg/dL LAB CHEMISTRY METHOD 01/18/2025 2:29 PM EDT [facility] HDL 56 >=40 mg/dL LAB CHEMISTRY METHOD 01/18/2025 2:29 PM EDT [facility] LDL Calculated 81 0 - 100 mg/dL LAB CHEMISTRY METHOD 01/18/2025 2:29 PM EDT [facility] VLDL Cholesterol Mckay 30.8 mg/dL LAB CHEMISTRY METHOD 01/18/2025 2:29 PM EDT [facility] Non HDL Chol. (LDL+VLDL) 112 <145 mg/dL LAB CHEMISTRY METHOD 01/18/2025 2:29 PM EDT [facility] Chol/HDL Ratio 3.0 0.0 - 4.4 LAB CHEMISTRY METHOD 01/18/2025 2:29 PM EDT [facility] Blood Venous blood specimen / Unknown Venipuncture / Unknown 01/18/2025 9:44 AM EDT 01/18/2025 9:44 AM EDT us Piedad VELAZCO LAB BLOOD ORDERABLES Final Re sult [facility] [address] [place] [address], [place] [phone] * (ABNORMAL) Microalbumin creatinine urine ratio (01/18/2025 9:44 AM EDT) Creatinine, Urine 146.0 mg/dL LAB CHEMISTRY METHOD 01/18/2025 4:20 PM EDT [facility] Microalb, Ur 30.5(H) 0.0 - 29.0 mg/L LAB CHEMISTRY METHOD 01/18/2025 4:20 PM EDT [facility] Microalb/Crea t Ratio 21 <30 mg/g creat LAB CHEMISTRY METHOD 01/18/2025 4:20 PM EDT [facility] Urine Urine specimen from urethra / Unknown Non-blood Collection / Unknown 01/18/2025 9:44 AM EDT 01/18/2025 9:44 AM EDT us Piedad VELAZCO LAB URINE ORDERABLES Final Re sult Performing Organization Address City/[facility]/ZIP Co de Phone Number [facility] [address] [place] [address], [place] [phone] * (ABNORMAL) Vitamin D 25 hydroxy (01/18/2025 9:44 AM EDT) Vit D, 25-Hydroxy 29.4(L) 30.0 - 80.0 ng/mL LAB CHEMISTRY METHOD 01/18/2025 3:03 PM EDT [facility] Blood Venous blood specimen / Unknown Venipuncture / Unknown 01/18/2025 9:44 AM EDT 01/18/2025 9:44 AM EDT us Piedad VELAZCO LAB BLOOD ORDERABLES Final Re sult Performing Organization Address [facility]/ZIP Pr de Phone Number [facility] [address] [place] [address], [place] [phone] * (ABNORMAL) Hemoglobin A1c (01/18/2025 9:44 AM EDT) Pathologist [facility] Hemoglobin A1C 6.9(H) <6.5 % LAB CHEMISTRY METHOD 01/18/2025 8:00 PM EDT [facility] Mean Bld Glu Estim. 151 mg/dL LAB CHEMISTRY METHOD 01/18/2025 8:00 PM EDT [facility] Blood Venous blood specimen / Unknown Venipuncture / Unknown 01/18/2025 9:44 AM EDT 01/18/2025 9:44 AM EDT us Piedad VELAZCO LAB BLOOD ORDERABLES Final Re sult Performing Organization Address [facility] de Phone Number [facility] [address] [place] [address], [place] [phone] * (ABNORMAL) Comprehensive metabolic panel (01/18/2025 9:44 AM EDT) Sodium 138 133 - 145 mmol/L LAB CHEMISTRY METHOD 01/18/2025 2:37 PM EDT [facility] Potassium 4.1 3.5 - 5.5 mmol/L LAB CHEMISTRY METHOD 01/18/2025 2:37 PM EDT [facility] Chloride 102 96 - 110 mmol/L LAB CHEMISTRY METHOD 01/18/2025 2:37 PM EDT [facility] CO2 28 21 - 32 mmol/L LAB CHEMISTRY METHOD 01/18/2025 2:37 PM [facility] Anion Gap 8 3 - 11 LAB CHEMISTRY METHOD 01/18/2025 2:37 PM [facility] Glucose 113(H) 70 - 100 mg/dL LAB CHEMISTRY METHOD 01/18/2025 2:37 PM [facility] BUN 14 5 - 25 mg/dL LAB CHEMISTRY METHOD 01/18/2025 2:37 PM [facility] Creatinine 0.60 0.50 - 1.10 mg/dL LAB CHEMISTRY METHOD 01/18/2025 2:37 PM [facility] eGFR 93 >=60 mL/min/1. 73m2 LAB CHEMISTRY METHOD 01/18/2025 2:37 PM [facility] Comment:Calculation based on the??Chronic Kidney Disease Epidemiology Collaboration (CKD-EPI) equation refit??without adjustment for race. BUN/Creatinine Ratio 23.3 LAB CHEMISTRY METHOD 01/18/2025 2:37 PM [facility] Calcium 9.9 8.5 - 10.5 mg/dL LAB CHEMISTRY METHOD 01/18/2025 2:37 PM [facility] AST (SGOT) 24 10 - 42 unit/L LAB CHEMISTRY METHOD 01/18/2025 2:37 PM [facility] ALT (SGPT) 47 10 - 60 unit/L LAB CHEMISTRY METHOD 01/18/2025 2:37 PM [facility] Alkaline Phosphatase 87 42 - 121 unit/L LAB CHEMISTRY METHOD 01/18/2025 2:37 PM [facility] Total Protein 7.1 6.0 - 8.0 g/dL LAB CHEMISTRY METHOD 01/18/2025 2:37 PM [facility] Albumin 3.8 3.2 - 5.0 g/dL LAB CHEMISTRY METHOD 01/18/2025 2:37 PM EDT [facility] Total Bilirubin 0.7 0.0 - 1.4 mg/dL LAB CHEMISTRY METHOD 01/18/2025 2:37 PM EDT [facility] Blood Venous blood specimen / Unknown Venipuncture / Unknown 01/18/2025 9:44 AM EDT 01/18/2025 9:44 AM EDT us Piedad VLEAZCO LAB BLOOD ORDERABLES Final Re sult [facility] [address] [place] [address], [place] [phone] * MG Mammo Digital Screening w Des bilat (10/06/2024 7:28 AM EST) Anatomical Region Laterality Modality Breast Bilateral Mammography 10/06/2024 8:18 AM EST Impressions 10/06/2024 8:22 AM EST BILATERAL BREASTS: Negative, no evidence of malignancy. Normal interval follow- up is recommended in 12 months. BREAST DENSITY: B - There are scattered areas of fibroglandular density. BI-RADS CATEGORY: 1 - NEGATIVE RECOMMENDATION: Screening bilateral mammogram is recommended in 1 year. Mammo Location: [facility], [address] [place] [address], [id number], . -------- FINAL REPORT -------- Dictated By: Ele Felix Dictated Date: 10/06/2024 08:18 ET Assigned Physician: Ele Felix Reviewed and Electronically Signed By: Ele Felix Signed Date: 10/06/2024 08:22 ET Workstation ID: [id number] Transcribed By: Self Edit Transcribed Date: 10/06/2024 08:18 ET Narrative 10/06/2024 8:22 AM EST STUDY: Bilateral screening mammography with tomosynthesis and CAD TECHNIQUE: Bilateral full-field digital screening mammography is obtained and read in conjunction with computer-aided detection. ??Tomosynthesis as well as 2-D C view imaging were obtained. ?? COMPARISON: Comparison made to multiple prior, most recent September 29, 2023, and most remote April 17, 2015. BILATERAL BREASTS: No significant masses, suspicious calcifications or other abnormalities are seen. Procedure Note Eel Felix MD - 10/06/2024 STUDY: Bilateral screening mammography with tomosynthesis and CAD TECHNIQUE: Bilateral full-field digital screening mammography is obtainedand read in conjunction with computer-aided detection. Tomosynthesis aswell as 2-D C view imaging were obtained. COMPARISON: Comparison made to multiple prior, most recent September, and most remote April 17, 2015. BILATERAL BREASTS: No significant masses, suspicious calcifications orother abnormalities are seen. IMPRESSION: BILATERAL BREASTS: Negative, no evidence of malignancy. Normal intervalfollow-up is recommended in 12 months. BREAST DENSITY: B - There are scattered areas of fibroglandular density. BI-RADS CATEGORY: 1 - NEGATIVE RECOMMENDATION: Screening bilateral mammogram is recommended in 1 year. Mammo Location: [facility], [address] [place] [address], [id number], . -------- FINAL REPORT -------- Dictated By: Ele Felix Dictated Date: 10/06/2024 08:18 ET Assigned Physician: Ele Felix Reviewed and Electronically Signed By: Ele Felix Signed Date: 10/06/2024 08:22 ET Workstation ID: [id number] Transcribed By: Self Edit Transcribed Date: 10/06/2024 08:18 ET Candy Vera MD IMG BI PROCEDURES Final Result * Diabetes Foot Exam (07/25/2024) Diabetes: Annual Foot Exam Abstracted Historical Provider HEALTH MAINTENANCE Final Result * FIT-DNA (Cologuard) (03/30/2023) [facility] Colorectal Cancer Screening: FIT-DNA (Cologuard) No Interpretation , Abstracted us Historical Provider HEALTH MAINTENANCE Final Result * DXA BONE DENSITY STUDY 1+ SITS AXIAL SKEL (08/06/2022 9:30 AM EDT) Anatomical Region Laterality Modality Bone Densitometr y 02/17/2022 8:51 AM EDT Narrative 08/07/2022 12:22 PM EDT BONE DENSITY (DEXA) ? Lumbar Spine T-score is 0.3. ?? (SD relative to 20-29 y/o adult) Z-score is 2.6. ??(SD relative to age matched peers) This is considered normal by WHO criteria. Left Hip T-score is -1.7. Z-score is 0.3. This is considered osteopenia by WHO criteria. IMPRESSION: This patient is considered to have osteopenia by WHO criteria. This patient has a 16% risk of major osteoporotic fracture and a 3.8% risk of hip fracture over the next 10 years. (World Health Organization Fracture Risk Assessment) [facility] Department of Internal Medicine recommends using National Osteoporosis Foundation (NOF) guidelines in treatment decisions related to osteoporosis. NOF guidelines suggest considering treatment for postmenopausal women and men aged 50 or older presenting with the following: History of hip or vertebral fracture. T-score = -2.5 (DXA) at the femoral neck, total hip, or spine, after appropriate evaluation to exclude secondary causes. Low bone mass (T-score between -1.0 and -2.5 at the femoral neck or spine) AND a 10-year probability of a hip fracture = 3% OR a 10-year probability of a major osteoporosis-related fracture = 20% based on the [place]-adapted WHO algorithm Please note that all treatment decisions require clinical judgment and consideration of individual patient factors, including patient preferences, co-morbidities, previous drug use, risk factors not captured in the FRAX model (e.g., frailty, falls, vitamin D deficiency, increased bone turnover, interval significant decline in bone density) and possible under- or over-estimation of fracture risk by FRAX. Optional alternative screening schedule based on ayanna Orlando., [facility] November 13, 2011 for patients with osteopenia (based on hip BMD T-score) is as follows: * ??advanced osteopenia (T scores -2.00 to -2.49), BMD testing every year * ??moderate osteopenia (T scores -1.50 to -1.99), BMD testing every 5 years mild osteopenia or normal BMD (T scores -1.50 and higher), BMD testing every 15 years Procedure Note Iwona Stern MD - 10/14/2022 BONE DENSITY (DEXA) Lumbar Spine T-score is 0.3. (SD relative to 20-29 y/o adult) Z-score is 2.6. (SD relative to age matched peers) This is considered normal by WHO criteria. Left Hip T-score is -1.7. Z-score is 0.3. This is considered osteopenia by WHO criteria. IMPRESSION: This patient is considered to have osteopenia by WHO criteria. Thispatient has a 16% risk of major osteoporotic fracture and a 3.8% risk of hip fracture over the next10 years. (World Health Organization Fracture Risk Assessment) [facility] Department of Internal Medicine recommendsusing National Osteoporosis Foundation (NOF) guidelines in treatment decisions related toosteoporosis. NOF guidelines suggest considering treatment for postmenopausal women and menaged 50 or older presenting with the following: History of hip or vertebral fracture. T-score = -2.5 (DXA) at the femoral neck, total hip, or spine, afterappropriate evaluation to exclude secondary causes. Low bone mass (T-score between -1.0 and -2.5 at the femoral neck or spine)AND a 10-year probability of a hip fracture = 3% OR a 10-year probability of a majorosteoporosis-related fracture = 20% based on the [place]-adapted WHO algorithm Please note that all treatment decisions require clinical judgment andconsideration of individual patient factors, including patient preferences, co- morbidities,previous drug use, risk factors not captured in the FRAX model (e.g., frailty, falls, vitaminD deficiency, increased bone turnover, interval significant decline in bone density) andpossible under- or over-estimation of fracture risk by FRAX. Optional alternative screening schedule based on pascual Orlando al., NEJMJanuary 2011 for patients with osteopenia (based on hip BMD T-score) is as follows: * advanced osteopenia (T scores -2.00 to -2.49), BMD testing every year * moderate osteopenia (T scores -1.50 to -1.99), BMD testing every 5years mild osteopenia or normal BMD (T scores -1.50 and higher), BMD testingevery 15 years Piedad VELAZCO IMG DXA PROCEDURES Final Resu lt * Hepatitis C Screening (03/10/2013) [facility] Hepatitis C Screening Abstracted Historical Provider MD HEALTH MAINTENANCE Final Result from Last 3 Months or Most Recently Relevant to Health Maintenance Insurance [employer] MEDICARE Care Teams Tax Manager Public Relationship Specialty Start Date End Date Candy Vera MD [address] [place] [address] PCP - General Internal Medicine 04/18/21
== END 2025-03-23 10:06 | disposition home or self-care (01) ==
LOC: HO.HPS 09:36
PROVIDERS: PCP Internal Medicine; Visit Provider Hospitalist
DX: J44.9 Chronic obstructive pulmonary disease, unspecified (principal); G47.33 Obstructive sleep apnea (adult) (pediatric)
CPT/HCPCS: 99214

== ENCOUNTER → 2025-03-23 09:36 | Outpatient (BNVA) | payer MEDICARE, SELFPAY | PROVIDERS: PCP Internal Medicine; Visit Provider Hospitalist | DX: J44.9 Chronic obstructive pulmonary disease, unspecified (principal); G47.33 Obstructive sleep apnea (adult) (pediatric); Z99.89 Dependence on other enabling machines and devices | CPT/HCPCS: 99212 ==

== ENCOUNTER 2025-10-20 12:52 | Outpatient (AMB) | payer MEDICARE, SELFPAY ==
--- OUTSIDE RECORDS SUMMARY | 2025-10-20 12:55 | XMS_ITS | Encounter Summary ---
Author Organization [facility] Prior to 08/26/2024 Address [address] [place] [address] Care Team Providers Care Rigging Worker Name Role Phone Nicole Van DO Primary Care Pro vider Unavailable Candy Vera MD Primary Care Provider [phone] Encounter Details Date Type Department Care Team Description 11/16/2016 Orders Only Adult Medicine [address] [address] Nicole Van DO SOB (shortness of breath) (Primary Dx) Social History Tobacco Use Types Packs/Day Years Used Date Smoking Tobacco: Never Smokeless Tobacco: Never Alcohol Use Standard Drinks/Week Comments Yes 0 (1 standard drink = 0.6 oz pur e alcohol) rare Sex Assigned at Date Recorded Female 02/04/2021 11:43 AM EDT Job Start Date Occupation Industry Not on file Not on file Not on file documented as of this encounter Plan of Treatment Not on file documented as of this encounter Visit Diagnoses Diagnosis SOB (shortness of breath)- Primary Shortness of breath documented in this encounter Care Teams Rigging Worker Relationship Specialty Start Date End Date Nicole Van DO PCP - General Internal Medicine 01/08/15 04/17/21 Candy Vera MD [address] [place] [address] [phone] PCP - General Internal Medicine 04/18/21 documented as of this encounter
--- OUTSIDE RECORDS SUMMARY | 2025-10-20 12:55 | XMS_ITS | Encounter Summary ---
Author Organization [facility] Prior to 08/26/2024 Address [address] [place] [address] Care Team Providers Care Uplands Division Director Name Role Phone Candy Vera MD Primary Care Provider [phone] Reason for Visit * Reason Comments E-prescribe Rx Request Encounter Details Date Type Department Care Team Description 05/13/2022 Refill Adult Medicine [address] [address] Candy Vera MD [address] [place] [address] [phone] E-prescribe Rx Request Social History Tobacco Use Types Packs/Day Years Used Date Smoking Tobacco: Never Smokeless Tobacco: Never Alcohol Use Standard Drinks/Week Comments Yes 0 (1 standard drink = 0.6 oz pur e alcohol) rare Sex Assigned at Date Recorded Female 02/04/2021 11:43 AM EDT Job Start Date Occupation Industry Not on file Not on file Not on file documented as of this encounter Miscellaneous Notes * Telephone Encounter - Donna Moses M.A. - 05/14/2022 4:03 PM EDT Lab Results Component Value Date NA 139 02/07/2022 K 4.5 02/07/2022 CO2 31 02/07/2022 CL 103 02/07/2022 BUN 19 02/07/2022 CREAT 0.60 02/07/2022 GLU 118 02/07/2022 CA 9.5 02/07/2022 GFR > 60 02/07/2022 KWASI 02/17/2022 w/Piedad Lee KWASI w/PCP 07/2021 Next OV 08/28/2022 w/PCP Pls review in Piedad Lee's absence, thank you. * Telephone Encounter - Radha Rai - 05/14/2022 12:28 PM EDT Patient would like script to be: E-PRESCRIBED/FAXED TO PHARMACY WHEN WAS THE PATIENT'S LAST APPOINTMENT IN ADULT MEDICINE? 02/17/2022 WHEN WAS THE LAST TIME THE PATIENT SAW THEIR PCP? 08/16/2021 Does patient have an upcoming appointment? Yes 08/28/2022 (THE MEDICATION REQUESTED IS ON THE MED LIST ABOVE) All of the medications requested were on the CURRENT MEDS list Did you check the Pharmacy information above?: YES Patient wants: 90 -day supply Is this a mail order prescription request ? YES If the refill is from a FAXED refill request what is the RX # listed on the fax? N/A Patients current insurance carrier is: Payor: [employer] / Plan: [facility] MEDICARE COMPLETE $0 [id number] / Product Type: HMO [id number] documented in this encounter Plan of Treatment Not on file documented as of this encounter Visit Diagnoses Diagnosis Essential hypertension Unspecified essential hypertension documented in this encounter Care Teams Uplands Division Director Relationship Specialty Start Date End Date Candy Vera MD [address] [place] [address] PCP - General Internal Medicine 04/18/21 documented as of this encounter
--- OUTSIDE RECORDS SUMMARY | 2025-10-20 12:55 | XMS_ITS | Encounter Summary ---
Author Organization [facility] Prior to 08/26/2024 Address [address] [place] [address] Care Team Providers Care Senior Animator Name Role Phone Candy Vera MD Primary Care Provider [phone] Reason for Visit * Reason Comments E-prescribe Rx Request Encounter Details Date Type Department Care Team Description 04/01/2022 Refill Adult Medicine [address] [phone] Candy Vera MD [address] [place] [address] [phone] E-prescribe Rx Request Social History Tobacco Use [...] Telephone Encounter - Donna Moses M.A. - 04/02/2022 11:44 AM EDT Pravastatin refill not appropriate as this was changed to 40MG. Losartan due. Lab Results Component Value Date NA 139 02/07/2022 K 4.5 02/07/2022 CO2 31 02/07/2022 CL 103 02/07/2022 BUN 19 02/07/2022 CREAT 0.60 02/07/2022 GLU 118 02/07/2022 CA 9.5 02/07/2022 GFR > 60 02/07/2022 KWASI 02/17/2022 w/Piedad Lee KWASI w/PCP 07/2021 Next OV 08/28/2022 w/PCP documented in this encounter Plan of Treatment Not on file documented as of this encounter Visit Diagnoses Diagnosis Essential hypertension Unspecified essential hypertension Mixed hyperlipidemia documented in this encounter Care Teams Senior Animator Relationship Specialty Start Date End Date Candy Vera MD [address] [place] [address] PCP - General Internal Medicine 04/18/21 documented as of this encounter
--- OUTSIDE RECORDS SUMMARY | 2025-10-20 12:55 | XMS_ITS | Encounter Summary ---
Author Organization [facility] Address [address] [place] [address] Care Team Providers Care Manager Games Name Role Phone Candy Vera MD Primary Care Provider [phone] Encounter Details Date Type Department Care Team ([facility] st Contact Info) Description 09/19/2025 Results Follow-Up Adult Medicine [facility] [address] [place], [place] [phone] Candy Vera MD [address] [place], [place] Social History Tobacco Use Types Packs/Day Years [...] care for your loved ones. For example, summer child caregiver or elderly care for an older adult? [...] Date Recorded What is your living situation? Unrecognized valu e 01/16/2025 Comments Unknown Sex and Gender Information Value Date Recorded Sex Assigned at Not on file Legal Sex Female 1:05 AM EST Gender Identity Not on file Sexual Orientation Not on file documented as of this encounter Plan of Treatment Upcoming Encounters Date Type Department Care Team (Late st Contact Info) Description 01/25/2026 8:15 AM EDT Office Visit Adult Medicine [address] [phone] Candy Vera MD [address], [place] documented as of this encounter Visit Diagnoses Not on filedocumented in this encounter Additional Health Concerns Assessment Noted Time PHQ-9 Depression Total Score: 0 01/24/20 8:38 AM EDT A fall risk assessment has been complete d for the patient 01/23/2025 8:37 AM EDT documented as of this encounter Care Teams Manager Games Relationship Specialty Start Date End Date Candy Vera MD [address] [place] [phone] PCP - General Internal Medicine 04/18/21 documented as of this encounter
--- OUTSIDE RECORDS SUMMARY | 2025-10-20 12:55 | XMS_ITS | Encounter Summary ---
Author Organization [facility] Prior to 08/26/2024 Address [address] [place] [address] Care Team Providers Care Mill Tender Warm Up Name Role Phone Candy Vera MD Primary Care Provider [phone] Encounter Details Date Type Department Care Team Description 06/03/2021 Director Client Services Report Medical Records [address] [place] [phone] Lico Castillo MD Social History Tobacco Use Types Packs/Day Years Used Date Smoking Tobacco: Never Smokeless Tobacco: Never Alcohol Use Standard Drinks/Week Comments Yes 0 (1 standard drink = 0.6 oz pur e alcohol) rare Sex Assigned at Date Recorded Female 02/04/2021 11:43 AM EDT Job Start Date Occupation Industry Not on file Not on file Not on file COVID-19 Exposure Response Date Recorded In the last month, have you been in contact with someone who was confirmed or suspected to have Coronavirus / COVID-19? No / Unsure 05/29/2021 10:24 AM EDT documented as of this encounter Plan of Treatment Not on file documented as of this encounter Visit Diagnoses Not on filedocumented in this encounter Care Teams Mill Tender Warm Up Relationship Specialty Start Date End Date Candy Vera MD [address] [place] [address] PCP - General Internal Medicine 04/18/21 documented as of this encounter
--- OUTSIDE RECORDS SUMMARY | 2025-10-20 12:55 | XMS_ITS | Encounter Summary ---
Author Organization [facility] Prior to 08/26/2024 Address [address] [facility] [place] [address] Care Team Providers Care Casework Specialist Name Role Phone Candy Vera MD Primary Care Provider [phone] Encounter Details Date Type Department Care Team Description 07/29/2022 Telephone [facility] [address] [facility] [address] [place] [phone] Vanessa Judge APRN Social History Tobacco Use Types Packs/Day Years [...] encounter Miscellaneous Notes * Telephone Encounter - Jacque Winston - 07/29/2022 11:11 AM EDT Alison asked me to send you a message letting you know she had to cancel due to her being exposed tocovid but so far she is negative but pretty sick . She stats her shoulder is doing much better and she will call to reschedule when she's feeling better :) documented in this encounter Plan of Treatment Not on file documented as of this encounter Visit Diagnoses Not on filedocumented in this encounter Care Teams Casework Specialist Relationship Specialty Start Date End Date Candy Vera MD [address] [place] [address] PCP - General Internal Medicine 04/18/21 documented as of this encounter
--- OUTSIDE RECORDS SUMMARY | 2025-10-20 12:55 | XMS_ITS | Encounter Summary ---
Author Organization [facility] Prior to 08/26/2024 Address [address] [place] [address] Care Team Providers Care Registered Nurse Cardiac Telemetry Name Role Phone Candy Vera MD Primary Care Provider [phone] Reason for Visit * Reason Comments E-prescribe Rx Request Encounter Details Date Type Department Care Team Description 07/05/2024 Refill Adult Medicine [address] [phone] Candy Vera MD [address] [place] [address] [phone] E-prescribe Rx Request Social History Tobacco Use [...] encounter Miscellaneous Notes * Telephone Encounter - Denise Shaw - 07/22/2024 12:07 PM EDT Patient would like script to be: E-PRESCRIBED/FAXED TO PHARMACY WHEN WAS THE PATIENT'S LAST APPOINTMENT IN ADULT MEDICINE? 12/31/23 WHEN WAS THE LAST TIME THE PATIENT SAW THEIR PCP? Same as above Does patient have an upcoming appointment? Yes 07/25/24 (THE MEDICATION REQUESTED IS ON THE MED [...] N/A Patients current insurance carrier is: Payor: [facility] / Plan: [employer] MEDICARE COMPLETE $0 [id number] / Product Type: HMO [id number] documented in this encounter Plan of Treatment Not on file documented as of this encounter Visit Diagnoses Not on filedocumented in this encounter Care Teams Registered Nurse Cardiac Telemetry Relationship Specialty Start Date End Date Candy Vera MD [address] [place] [phone] PCP - General Internal Medicine 04/18/21 documented as of this encounter
--- OUTSIDE RECORDS SUMMARY | 2025-10-20 12:55 | XMS_ITS | Clinical Summary ---
Author Organization [facility] Prior to 08/26/2024 Address [address] [facility] [place] [address] Care Team Providers Care Non Profit Financial Controller Name Role Phone Candy Vera MD Primary Care Provider [phone] Allergies Active Allergy Reactions Severity Noted Date Comments Dogs 03/01/2018 Latex Anaphylaxis High 11/08/2012 Medications Medication Sig Dispensed Refills Start Date End Date Status Calcium Carbonate-Vitamin D (CALCIUM 600 + D) 600-400 MG-UNIT TABS Take 1 Tab by mouth daily. 0 Active fluticasone (FLONASE) 50 MCG/ACT nasal spray 2 Sprays by Nasal route daily. 1 Bottle 5 03/01/2018 Active ALBUTEROL SULFATE 108 (90 BASE) MCG/ACT Aero SolnIndications:Mild persistent asthma with acute exacerbation,Morbid obesity due to excess calories (HCC),Sleep-related hypoventilation,Obst ructive sleep apnea,Post-nasal drainage,Allergic rhinitis due to pollen, unspecified seasonality,[place]cturn[place] l hypoxia,On home oxygen therapy Inhale 2 Puffs into the lungs every 4 hours as needed for Cough or Wheezing. 3 Inhaler 3 01/05/2019 Active Accu-Chek SOFTCLIX LANCETS Misc CHECK BLOOD SUGAR ONCE DAILY 100 Each 1 10/28/2021 Active lorazepam (ATIVAN) 1 MG tablet TAKE 1 TABLET BY MOUTH 1 HOUR BEFORE DENTAL APPOINTMENT. DO NOT DRIVE OR OPERATE ANY MACHINERY WHILST TAKING THIS MEDICATION 0 02/03/2023 Active Breztri Aerosphere 160-9-4.8 MCG/ACT Aerosol INHALE 2 PUFFS BY MOUTH TWICE DAILY 0 11/30/2023 Active Semaglutide,0.25 or 0.5MG/DOS, 2 MG/1.5ML Solution Pen-injector Inject into the skin. 0 Active EPINEPHrine (EpiPen 2-Shine) 0.3 MG/0.3ML Solution Auto-injector Inject 1 Each as directed as needed for Other (anaphylaxis). 1 Each 2 12/31/2023 Active losartan (COZAAR) 50 MG tablet Take 1 Tablet by mouth daily. 90 Tablet 1 07/22/2024 Active hydrochlorothiazide (HYDRODIURIL) 25 MG tablet Take 1 Tablet by mouth daily. 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 Sleep-related hypoventilation 01/25/2017 Hyperlipidemia 04/18/2014 Knee arthropathy 03/10/2013 HTN (hypertension) Graves' disease Overview: was on PTU< but off it for 4 yrs, follows with Dr Nica Taylor, in [place], [place] History of basal cell carcinoma (BCC) of skin Overview: Facial, NE Derm Asthma Resolved Problems Problem Noted Date Resolved Date Mild persistent asthma with acute exacerbation 1 12/06/2017 06/05/2021 Post-nasal drainage 10/05/2018 06/05/2021 Nocturnal hypoxia 10/05/2018 06/05/2021 On home oxygen therapy 10/05/2018 Newly diagnosed diabetes 10/16/2016 018 Immunizations Name Administration Dates Next Due ABRYSVO (RSV) PT REPORTED 12/11/2023 COVID-19 (Pfizer) 08/12/2021,01/25/2021,01/05/20 21 Covid-19 Bivalent (Pfizer) 02/12/2022 Covid-19 Pfizer Omicron (Pt Reported)-Comirnaty 07/21/2023 Influenza (> 6 Months) 09/05/2015 Influenza vaccine high dose age 65 and over 08/06/2023,09/23/2022,09/24/2021,09/11,08/19/2019,08/06/2018,09/24/2017 ,09/05/2015 Pneumoccoccal(Adult) Polysac charide PPSV23 07/05/2013 Pneumococcal Conjugate PCV-13 10/16/2016 RSV 12/11/2023 Shingrix (Recombinant zoster vaccine) 08/27/2020 ,06/26/2020 Tdap 02/06/2015 Zostavax (Patient Reported) 06/26/2014 Family History Medical History Relation Name Comments multiple sclerosis Brother Hypertension Mother cholesterol Thyroid Disorder Sister 1 sister mari s DM and HTN CA Breast Negative Hx CA Colon Negative Hx CA Ovarian Negative Hx Relation Name Status Comments Brother Mother [...] file Not on file Not on file Last Filed Vital Signs Vital Sign Reading Time Taken Comments Blood Pressure 134/86 07/25/2024 9:38 AM EDT Pulse 76 07/25/2024 8:52 AM EDT Temperature 35.8 C (96.5 F) 07/25/2024 8:52 AM EDT Respiratory Rate 16 07/25/2024 8:52 AM EDT Oxygen Saturation 97% 06/02/2022 2:21 PM EDT Inhaled Oxygen Concentration - - Weight 86.2 kg (190 lb) 07/25/2024 8:52 AM EDT Height 154.9 cm (5' 1 ) 07/25/2024 8:52 AM EDT Body Mass Index 35.9 07/25/2024 8:52 AM EDT Plan of Treatment Health Maintenance Due Date Last Done Comments DIABETES: ANNUAL URINE PROTE IN TEST (MICROALBUMIN) 07/30/2024 07/30/2023, 09/02/2022, 05/29/2021, Additional history exists BONE DENSITY SCREENING 08/06/2024 , 04/02/2018, 05/25/2015 (External Completion) MAMMOGRAM 09/29/2024 09/29/2023, 08/27, 09/13/2021, Additional history exists DIABETES: ANNUAL EYE EXAM 10/06/20242022, 10/13/2022, 10/13/2022 (External Completion), Additional history exists DIABETES: BLOOD SUGAR CONTRO L TEST (HGBA1C) 10/24/2024 07/25/2024, 03/17/2023, 09/01/2022, Additional history exists BMI CHECK/ADVISE 10/26/2024 07/25/2024, 04/2024, 08/10/2023, Additional history exists DTAP/TDAP/TD (2 - Td or Tdap) 02/06/2025 02/06/2015 Covid-19 Vaccine (2022-2 4 season) 2025 07/21/2023, 11/16/2022, 02/12/2022, Additional history exists INFLUENZA (#1) 2025 08/06/2023, 08/27, 09/24/2021, Additional history exists DIABETES/HEART DISEASE: MACA[place]O YI CHOLESTEROL (LDL) 07/25/2025 07/25/2024, 03/17/2023, 02/07/2022, Additional history exists DIABETES: ANNUAL FOOT EXAM 07/25/202507/25, 08/16/2021, 07/12/2019, Additional history exists COLON CANCER SCREENING - [place] 03/30/20262022 HEPATITIS C SCREENING Completed 03/10/2013 PNEUMOCOCCAL VACCINE Completed 10/16/2016, 07/05/20 13 SHINGLES VACCINE Completed 08/27/2020, 06/26/2020 Care Teams Non Profit Financial Controller Relationship Specialty Start Date End Date Candy Vera MD [address] [place] [address] [place] [phone] PCP - General Internal Medicine 04/18/21
--- OUTSIDE RECORDS SUMMARY | 2025-10-20 12:55 | XMS_ITS | Encounter Summary ---
Author Organization [facility] Prior to 08/26/2024 Address [address] [place] [address] Care Team Providers Care Web Content Specialist Name Role Phone Nicole Van DO Primary Care Pro vider Unavailable Candy Vera MD Primary Care Provider [phone] Reason for Visit * Reason Onset Date Comments Prior Authorization 11/20/2016 Encounter Details Date Type Department Care Team Description 11/20/2016 Telephone Radiology - [address] [address] Nicole Van DO Prior Authorization Social History Tobacco Use Types Packs/Day Years [...] encounter Miscellaneous Notes * Telephone Encounter - Lisbet Hardy - 11/24/2016 8:18 AM EST Yes. Prior auth is needed with [facility]. * Telephone Encounter - Eveline Caldera - 11/20/2016 4:56 PM EST Prior authorization is needed for an echocardiogram. Pt has [facility]. Thank you documented in this encounter Plan of Treatment Not on file documented as of this encounter Visit Diagnoses Not on filedocumented in this encounter Care Teams Web Content Specialist Relationship Specialty Start Date End Date Nicole Van DO PCP - General Internal Medicine 01/08/15 04/17/21 Candy Vera MD [address] [place] [address] PCP - General Internal Medicine 04/18/21 documented as of this encounter
--- OUTSIDE RECORDS SUMMARY | 2025-10-20 12:55 | XMS_ITS | Encounter Summary ---
Author Organization [facility] Prior to 08/26/2024 Address [address] [place] [address] Care Team Providers Care Customer Success Associate Name Role Phone Nicole Van DO Primary Care Pro vider Unavailable Candy Vera MD Primary Care Provider Encounter Details Date Type Department Care Team Description 12/15/2020 Timber Repairer Report Medical Records [address] [place] [address] Nikole Goddard Social History Tobacco Use Types Packs/Day Years [...] on filedocumented in this encounter Care Teams Customer Success Associate Relationship Specialty Start Date End Date Nicole Van DO PCP - General Internal Medicine 01/08/15 04/17/21 Candy Vera MD [address] [place] [address] [phone] PCP - General Internal Medicine 04/18/21 documented as of this encounter
--- OUTSIDE RECORDS SUMMARY | 2025-10-20 12:55 | XMS_ITS | Encounter Summary ---
Author Organization [facility] Prior to 08/26/2024 Address [address] [facility] [place] [address] Care Team Providers Care Industrial Maintenance Repairer Helper Name Role Phone Nicole Van DO Primary Care Pro vider Unavailable Candy Vera MD Primary Care Provider [phone] Encounter Details Date Type Department Care Team Description 03/27/2021 Railway Head Tender Report Medical Records [address] [place] [id number] Lico Castillo MD Social History Tobacco Use [...] have Coronavirus / COVID-19? No / Unsure 03/26/2021 8:43 AM EDT documented as of this encounter Plan of Treatment Not on file documented as of this encounter Visit Diagnoses Not on filedocumented in this encounter Care Teams Industrial Maintenance Repairer Helper Relationship Specialty Start Date End Date Nicole Van DO PCP - General Internal Medicine 01/08/15 04/17/21 Candy Vera MD [address] [place] [address] [id number] PCP - General Internal Medicine 04/18/21 documented as of this encounter
--- OUTSIDE RECORDS SUMMARY | 2025-10-20 12:55 | XMS_ITS | Encounter Summary ---
Author Organization [facility] Prior to 08/26/2024 Address [address] [place] [address] Care Team Providers Care Crm Analyst Name Role Phone Nicole Van DO Primary Care Pro vider Unavailable Candy Vera MD Primary Care Provider [phone] Reason for Visit * Reason Onset Date Comments medication problems 09/10/2015 Encounter Details Date Type Department Care Team Description 09/10/2015 Telephone Adult Medicine [address] [phone] Nicole Van DO medication problems Social History Tobacco Use Types Packs/Day Years [...] encounter Miscellaneous Notes * Telephone Encounter - Nicole Bah DO - 09/13/2015 2:55 PM EST I sent him a new Rx with twice a day indications and a quantity of 180. * Telephone Encounter - Delmy Alexis - 09/13/2015 1:33 PM EST 2nd request received from [facility] * Telephone Encounter - Delmy Alexis - 09/10/2015 3:56 PM EST What is the name of the medication patient is having a problem with?: berenice What is the problem?: directions and quantity do not match the 90 day supply Is the patient calling about the problem? NO If the patient is not the caller who is? [facility] Is this a NEW medication?: no How long has the patient been taking this medication? months Who prescribed this medication for the patient? Nicole Lujan Who is patients PCP?: Nicole Lujan Payor: [facility] / Plan: [facility] MEDIC[facility] COMPLETE $25/$50 SLC / Product Type: PPO [id number] documented in this encounter Plan of Treatment Not on file documented as of this encounter Visit Diagnoses Not on filedocumented in this encounter Care Teams Crm Analyst Relationship Specialty Start Date End Date Nicole Van DO PCP - General Internal Medicine 01/08/15 04/17/21 Candy Vera MD [address] [place] [id number] PCP - General Internal Medicine 04/18/21 documented as of this encounter
--- OUTSIDE RECORDS SUMMARY | 2025-10-20 12:55 | XMS_ITS | Clinical Summary ---
Author Organization [facility] [address] [place] [address] [address] [place] [address] Phone Care Team Providers Care Upholstery Technician Name Role Phone Candy Vera MD Primary Care Provider [phone] Allergies Active Allergy Reactions Criticality Noted Date Comments Dog Dander 03/01/2018 Latex Anaphylaxis High 11/08/2012 Medications albuterol HFA (PROAIR HFA ; PROVENTIL HFA ; VENTOLIN HFA) 90 mcg/actuation inhaler Inhale 2 Puffs into the lungs every 4 hours as needed for Cough or Wheezing. 9 Active budesonide-gly copyr-formoter ol (Breztri Aerosphere) 160-9-4.8 mcg/actuation HFA aerosol inhaler inhaler INHALE 2 PUFFS BY MOUTH TWICE DAILY 4 Active calcium carbonate-vit D3-min 600 mg-10 mcg (400 unit) tablet Take 1 Tab by mouth daily. Active fluticasone propionate (FLONASE) 50 mcg/actuation nasal spray 2 Sprays by Nasal route daily. 8 Active metFORMIN (GLUCOPHAGE) 500 mg tablet Take 2 tablets (1,000 mg total) by mouth 2 (two) times a day with meals. 4 Active semaglutide (Ozempic) 0.25 mg or 0.5 mg(2 mg/1.5 mL) injection pen Inject 0.5 mg under the skin every 7 (seven) days. Active Accu-Chek Softclix Lancets 4 Active EPINEPHrine (EPIPEN) 0.3 mg/0.3 mL injection Inject 0.3 mL (0.3 mg total) into the thigh if needed for anaphylaxis. 2 each 2 5 Active pravastatin (PRAVACHOL) 40 mg tablet Take 1 tablet (40 mg total) by mouth at bedtime. 90 tablet 1 5 Active hydroCHLOROthi azide (HYDRODIURIL) 25 mg tablet Take 1 tablet (25 mg total) by mouth 1 (one) time each day. 90 tablet 1 5 Active losartan (COZAAR) 50 mg tablet Take 1 tablet (50 mg total) by mouth 1 (one) time each day. 90 tablet 1 5 Active omeprazole (PriLOSEC) [address] capsule Take 1 capsule (20 mg total) by mouth 1 (one) time each day. Do not crush or chew. 90 each 1 5 10/31/19 26 Active LORazepam (ATIVAN) 1 mg tablet TAKE 1 TABLET BY MOUTH 1 HOUR BEFORE DENTAL APPOINTMENT. DO NOT DRIVE OR OPERATE ANY MACHINERY WHILST TAKING THIS MEDICATION 3 09/25/20 25 Discontinu ed( ) Active Problems Problem Noted Date Diagnosed Date Multinodular goiter (nontoxic) 01/15/2025 Assessment & Plan (01/23/2025 9:31 AM EDT): Asthma 10/05/2024 Graves' disease 10/05/2024 Overview (10/05/2024): was on PTU< but off it for 4 yrs, follows with Dr Nica Taylor, in [place], mA HTN (hypertension) 10/05/2024 Assessment & Plan (01/23/2025 9:31 AM EDT): Severe obesity (BMI 35.0-35.9 with comorbidity) 10/05/2024 Osteopenia 08/07/2022 Microalbuminuria 05/10/2019 Assessment & Plan (01/23/2025 9:31 AM EDT): Onychomycosis 05/10/2019 Allergic rhinitis due to pollen 10/05/2018 Type 2 diabetes mellitus with renal manifestatio ns 07/06/2018 Assessment & Plan (01/23/2025 9:31 AM [...] n in conditions classified elsewhere 01/25/2017 Hyperlipidemia LDL goal <70 04/18/2014 Assessment & Plan (01/23/2025 9:31 AM EDT): Knee arthropathy 03/10/2013 History of basal cell carcinoma (BCC) of skin Overview (01/15/2025): : facial, NE Derm History of squamous cell carcinoma Overview (01/15/2025): L groin Encounters Date Type Department Care Team Description 10/07/2025 8:08 AM EST - 10/07/2025 11:59 PM EST Hospital Encounter Radiology Department - [address] [phone] Encounter for screening mammogram for breast cancer Discharge Disposition: Home or Self Care 09/25/2025 8:30 AM EST Office Visit Adult Medicine [address] [phone] Piedad Lee PA Type 2 diabetes mellitus with diabetic microalbuminuria, without long-term current use of insulin (CMS/HCC V24, CMS/HCC V28) (Primary Dx); Primary hypertension; Hyperlipidemia LDL goal <70; Microalbuminuria; Obstructive sleep apnea; Severe obesity (BMI 35.0-35.9 with comorbidity) ([facility] V24, [facility] V28); Osteopenia, unspecified location; History of squamous cell carcinoma; History of basal cell carcinoma (BCC) of skin; Moderate persistent asthma without complication; Asymptomatic menopausal state 09/19/2025 Results Follow-Up Adult [address] [phone] Candy Vera MD 09/18/2025 9:25 AM EST Lab Draw Station [address] Type 2 diabetes mellitus with diabetic microalbuminuria, without long-term current use of insulin ([facility] V24, [facility] V28) from Last 3 Months Immunizations Immunization Administration Dates Next Due Influenza trivalent, 0.5mL ( Fluad) 65yo and older 08/06/2023,09/23/2022,09/24/2021,09/11,08/19/2019,08/06/2018,09/24/2017 ,09/05/2015 Influenza trivalent, 0.5mL ( Fluzone High-dose) 65yo and older 08/01/2024 Pfizer (ages 12 & older) Biv alent, COVID-19 07/21/2023,02/12/2022 Pneumococcal conjugate 13 va lent (Prevnar 13, PCV13) 2mo and older 10/16/2016 Pneumococcal conjugate 21 va lent (CAPVAXIVE, PCV 21) 19yo and older 07/30/2025 Pneumococcal polysaccharide 23 valent (Pneumovax 23) 2yo and older 07/05/2013 Respiratory syncytial virus (RSV), unspecified 12/11/2023,12/11/2023 Tdap Tetanus diptheria acell ular pertussis (Boostrix; Adacel) 7yo and older 10/29/2024,02/06/2015 Zoster Live 06/26/2014 Zoster recombinant (Shingrix ) 19yo and older 08/27/2020,06/26/2020 Surgical History Surgery Date Site/Laterality Comments SCREENING MAMMOGRAM 10/06/2024 Bilateral BX BREAST W DEVICE 1ST LESIO N ULTRASOUND GUIDE Right many yrs ago-benign Medical History Medical History Date Comments HTN (hypertension) Hyperlipidemia 04/18/2014 Thyroid nodule Asthma History of basal cell carcin mik (BCC) of skin : facial, NE Derm Onychomycosis 05/10/2019 Severe obesity (BMI 35.0-35. 9 with comorbidity) ([facility] V24, [facility] V28) 10/05/2018 Microalbuminuria 05/10/2019 Type 2 diabetes mellitus wit h renal manifestations ([facility] V24, [facility] V28) 07/06/2018 Sleep-related hypoventilation 01/25/2017 PLMD (periodic [...] yrs, follows with Dr Nica Taylor, in [place], mA Family History Medical History Relation Name [...] you may not have stable housing? No 09/25/2025 Food Access & Nutrition Answer Date Rec orded Do you have access to a vari ety of food including fruits and vegetables? Yes 09/25/2025 Access to Healthcare Answer Date Record ed Within the last 3 months, ho w many times did you visit the emergency department for your medical care? 0 09/25/2025 Health Literacy Answer Date Recorded How often do you need to hav e someone help you when you read instructions, pamphlets, or other written material from your doctor or pharmacy? Rarely 09/25/2025 Caregiver: How often do you need to have someone help you when you read instructions, pamphlets, or other written material from your doctor or pharmacy? Not on file 09/25/2025 Financial Risk Answer Date Recorded How hard is it for you to pa y for the very basics like food, housing, medical care, and air conditioning / heating? Not very hard 09/25/2025 Transportation Answer Date Recorded Has the lack of transportati on kept you from meetings, work, or from getting things needed for daily living? No Has the lack of transportati on kept you from medical appointments or from getting medications? No 09/25/2025 Social Isolation Answer Date Recorded How often do you feel lonely or isolated from th ose around you? Rarely 09/25/2025 Food Risk Answer Date Recorded Within the past 12 months we worried whether our food would run out before we got money to buy more. Never true 09/25/2025 Within the past 12 months th e food we bought just didn't last and we didn't have money to get more. Never true 09/25/2025 Dependent Care Answer Date Recorded Do you need help finding or paying for care for your loved ones. For example, child welfare counselor or elderly care for an older adult? No 09/25/2025 Education Answer Date Recorded Do you think completing more education or training, like finishing a GED, going to college, or learning a trade, would be helpful for you? N/A 09/25/2025 Employment and Income Answer Date Recor ded During the last four weeks, have you been actively looking for work? No 09/25/2025 Living Situation Answer Date Recorded What is your living situation? Unrecognized valu e 09/25/2025 Comments No Sex and Gender Information Value Date Recorded Sex Assigned at Not on file Legal Sex Female 1:05 AM EST Gender Identity Not on file Sexual Orientation Not on file Obstetrics History Para Term AB IAB SAB Ectopic Multiple Livin g Live Births Date Outcome GA Total Labor Labor/2nd/3rd Weight Sex Type Anes PTL Brandy A1 A5 Name Clin Term Last Filed Vital Signs Vital Sign Reading Time Taken Comments Blood Pressure 123/52 09/25/2025 8:07 AM EST Pulse 78 09/25/2025 8:07 AM EST Temperature 35.7 C (96.2 F) 09/25/2025 8:07 AM EST Respiratory Rate 18 09/25/2025 8:07 AM EST Oxygen Saturation 97% 09/25/2025 8:07 AM EST Inhaled Oxygen Concentration - - Weight 86.7 kg (191 lb 1.6 oz) 09/25/2025 8:07 A M EST Height 154.9 cm (5' 1 ) 09/25/2025 8:07 AM EST Body Mass Index 36.11 09/25/2025 8:07 AM EST Plan of Treatment Upcoming Encounters Date Type Department Care Team (Late st Contact Info) Description 01/25/2026 8:15 AM EDT Office Visit Adult Medicine [facility] [address] [place] [address] Candy Vera MD [address] [place] [address] Health Maintenance Due Date Last Done Comments Diabetes: Annual Retina Eye Exam 1960 RSV Immunization Adult Patients (1 - 1-dose 75+ series) 2023 12/11/2023, 12/11/2023 Osteoporosis Screening (Bone Density Screening) 08/06/2024 08/06/2022, 04/02/2018 Diabetes: Annual Foot Exam 07/25/2025 07/25/2024 Diabetes: Annual Urine Albumin-Creatinine Ratio (uACR) 01/18/2026 01/18/2025, 07/30/2023 Diabetes: Annual GFR (Glomerular Filtration Rate) 01/18/2026 01/18/2025, 07/30/2023 Hypertension/CHF/CAD Annual BMP Blood Test 01/18/2026 01/18/2025, 07/30/2023 Medicare Annual Wellness Visit 01/23/2026 01/23/2025 COVID-19 Vaccine ( season) 2026 08/15/2025, 10/14/2024, 07/21/2023, Additional history exists Diabetes: Blood Sugar Control Test (HGBA1C) 03/18/2026 09/18/2025, 04/21/2025, 01/18/2025, Additional history exists Colorectal Cancer Screening: FIT-DNA (Cologuard) 03/30/2026 03/30/2023, 03/30/2023, 03/30/2023 Falls Risk Assessment 09/25/2026 09/25/2025, 025 Social Influencers of Health Screening 09/25/2026 09/25/2025 Cholesterol Screening (Lipid Panel) 01/18/2030 01/18/2025, 07/25/2024, 07/25/2024 DTaP,Tdap,and Td Vaccines (3 - Td or Tdap) 10/29/2034 10/29/2024, 02/06/2015 Hepatitis C Screening Completed 03/10/2013 Zoster Vaccines Completed 08/27/2020, 10/2019, 06/26/2014 RSV Immunization Patients Under 20 months Aged Out 12/11/2023, 12/11/2023 No longer eligibl e based on patient's age to complete this topic Pneumococcal Vaccine: 50+ Years Completed 07/30/2025, 10/16/2016, 07/05/2013 Depression Screening Completed 09/25/2025 Influenza Vaccine Completed 10/05/2025, , 08/06/2023, Additional history exists Breast Cancer Screening Discontinued 10/07/20, 10/06/2024, 09/29/2023, Additional history exists HIB Vaccines Aged Out [...] Procedure Name Priority Date/Time Associated Diagnosis Comments MG MAMMO DIGITAL SCREENING W DES BILAT Routine 10/07/2025 8:19 AM EST Encounter for screening mammogram for breast cancer HEMOGLOBIN A1C Routine 09/18/2025 9:31 AM EST Type 2 diabetes mellitus with diabetic microalbuminuria, without long-term current use of insulin ([facility] V24, [facility] V28) MICROALBUMIN CREATININE URINE RATIO Routine 01/18/2025 9:44 AM EDT Type 2 diabetes mellitus with diabetic microalbuminuria, without long-term current use of insulin ([facility] V24, [facility] V28) Microalbuminuria COMPREHENSIVE METABOLIC PANEL Routine 01/18/2025 9:44 AM EDT Type 2 diabetes mellitus with diabetic microalbuminuria, without long-term current use of insulin ([facility] V24, [facility] V28) LIPID PANEL WITH REFLEX TO DIRECT LDL Routine 01/18/2025 9:44 AM EDT Mixed hyperlipidemia Type 2 diabetes mellitus with diabetic microalbuminuria, without long-term current use of insulin ([facility] V24, [facility] V28) DIABETES FOOT EXAM Routine 07/25/2024 FIT-DNA Routine 03/30/2023 DXA BONE DENSITY STUDY 1+ SITS AXIAL SKEL Routine 08/06/2022 9:30 AM EDT Other specified disorders of bone density and structure, unspecified site HEPATITIS C SCREENING Routine 03/10/2013 from Last 3 Months or Most Recently Relevant to Health Maintenance Results * MG Mammo Digital Screening w Des bilat (10/07/2025 8:19 AM EST) Anatomical Region Laterality Modality Breast Bilateral Mammography 10/10/2025 11:2 3 AM EST Impressions 10/10/2025 11:27 AM EST 1. No mammographic evidence of malignancy 2. Scattered fibroglandular tissue BI-RADS CATEGORY: 2 - BENIGN RECOMMENDATION: Screening bilateral mammogram is recommended in 1 year. Mammo Location: [facility], [address] [place] [address], [id number], . -------- FINAL REPORT -------- Dictated By: Magalis Mendieta Dictated Date: 10/10/2025 11:23 ET Assigned Physician: Magalis Mendieta Reviewed and Electronically Signed By: Magalis Mendieta Signed Date: 10/10/2025 11:27 ET Workstation ID: [id number] Transcribed By: Self Edit Transcribed Date: 10/10/2025 11:23 ET Narrative 10/10/2025 11:27 AM EST A BILATERAL DIGITAL 3D SCREENING MAMMOGRAPHY HISTORY: Routine screening. No family history of breast cancer. COMPARISON: Multiple priors dating back to 09/19/2022 Technique: Bilateral full field digital mammography (3D) was performed using standard CC and MLO projections CAD was used to evaluate this mammogram. FINDINGS: Right: No suspicious masses, groups of microcalcification or areas of architectural distortion identified. Stable typically benign parenchymal asymmetries. Left: No suspicious masses, groups of microcalcification or areas of architectural distortion identified. Stable typically benign parenchymal asymmetries. BREAST DENSITY: B - There are scattered areas of fibroglandular density. Procedure Note Magalis Mendieta MD - 10/10/2025 A BILATERAL DIGITAL 3D SCREENING MAMMOGRAPHY HISTORY: Routine screening. No family history of breast cancer. COMPARISON: Multiple priors dating back to 09/19/2022 Technique: Bilateral full field digital mammography (3D) was performedusing standard CC and MLO projections CAD was used to evaluate this mammogram. FINDINGS: Right: No suspicious masses, groups of microcalcification or areas ofarchitectural distortion identified. Stable typically benign parenchymalasymmetries. Left: No suspicious masses, groups of microcalcification or areas ofarchitectural distortion identified. Stable typically benign parenchymalasymmetries. BREAST DENSITY: B - There are scattered areas of fibroglandular density. IMPRESSION: 1. No mammographic evidence of malignancy 2. Scattered fibroglandular tissue BI-RADS CATEGORY: 2 - BENIGN RECOMMENDATION: Screening bilateral mammogram is recommended in 1 year. Mammo Location: [facility], [address] [place] [address], [id number], . -------- FINAL REPORT -------- Dictated By: Magalis Mendieta Dictated Date: 10/10/2025 11:23 ET Assigned Physician: Magalis Mendieta Reviewed and Electronically Signed By: Magalis Mendieta Signed Date: 10/10/2025 11:27 ET Workstation ID: [id number] Transcribed By: Self Edit Transcribed Date: 10/10/2025 11:23 ET Candy Vera MD IMG BI PROCEDURES Final Result * (ABNORMAL) Hemoglobin A1c (09/18/2025 9:31 AM EST) Hemoglobin A1C 6.5(H) <6.5 % LAB CHEMISTRY METHOD 09/18/2025 8:11 PM EST [facility] Mean Bld Glu Estim. 140 mg/dL LAB CHEMISTRY METHOD 09/18/2025 8:11 PM EST [facility] Blood Venous blood specimen / Unknown Venipuncture / Unknown 09/18/2025 9:31 AM EST 09/18/2025 9:31 AM EST us Candy Vera MD LAB BLOOD ORDERABLES Final Resul t [facility] [address] [place] [address], [place] [phone] * (ABNORMAL) Lipid panel with reflex to direct LDL (01/18/2025 9:44 AM EDT) Cholesterol 168 0 - 200 mg/dL LAB CHEMISTRY METHOD 01/18/2025 2:29 PM EDT [facility] Triglycerides 154(H) 0 - 150 mg/dL LAB CHEMISTRY METHOD 01/18/2025 2:29 PM EDT [facility] HDL 56 >=40 mg/dL LAB CHEMISTRY METHOD 01/18/2025 2:29 PM EDT [facility] LDL Calculated 81 0 - 100 mg/dL LAB CHEMISTRY METHOD 01/18/2025 2:29 PM EDT [facility] VLDL Cholesterol Mckay 30.8 mg/dL LAB CHEMISTRY METHOD 01/18/2025 2:29 PM EDT [facility] Non HDL Chol. (LDL+VLDL) 112 <145 mg/dL LAB CHEMISTRY METHOD 01/18/2025 2:29 PM EDT [facility] Chol/HDL Ratio 3.0 0.0 - 4.4 LAB CHEMISTRY METHOD 01/18/2025 2:29 PM EDT [facility] Blood Venous blood specimen / Unknown Venipuncture / Unknown 01/18/2025 9:44 AM EDT 01/18/2025 9:44 AM EDT us Piedad VELAZCO LAB BLOOD ORDERABLES Final Re sult [facility] [address] [place] [address], * (ABNORMAL) Microalbumin creatinine urine ratio (01/18/2025 9:44 AM EDT) Creatinine, Urine 146.0 mg/dL LAB CHEMISTRY METHOD 01/18/2025 4:20 PM EDT [facility] Microalb, Ur 30.5(H) 0.0 - 29.0 mg/L LAB CHEMISTRY METHOD 01/18/2025 4:20 PM EDT [facility] Microalb/Crea t Ratio 21 <30 mg/g creat LAB CHEMISTRY METHOD 01/18/2025 4:20 PM EDT [facility] Urine Urine specimen from urethra / Unknown Non-blood Collection / Unknown 01/18/2025 9:44 AM EDT 01/18/2025 9:44 AM EDT Piedad VELAZCO LAB URINE ORDERABLES Final Re sult [facility] [address] [place] [address], [place] [phone] * (ABNORMAL) Comprehensive metabolic panel (01/18/2025 9:44 AM EDT) Sodium 138 133 - 145 mmol/L LAB CHEMISTRY METHOD 01/18/2025 2:37 PM [facility] Potassium 4.1 3.5 - 5.5 mmol/L LAB CHEMISTRY METHOD 01/18/2025 2:37 PM [facility] Chloride 102 96 - 110 mmol/L LAB CHEMISTRY METHOD 01/18/2025 2:37 PM [facility] CO2 28 21 - 32 mmol/L LAB CHEMISTRY METHOD 01/18/2025 2:37 PM [facility] Anion Gap 8 3 - 11 LAB CHEMISTRY METHOD 01/18/2025 2:37 PM [facility] Glucose 113(H) 70 - 100 mg/dL LAB CHEMISTRY METHOD 01/18/2025 2:37 PM [facility] BUN 14 5 - 25 mg/dL LAB CHEMISTRY METHOD 01/18/2025 2:37 PM [facility] Creatinine 0.60 0.50 - 1.10 mg/dL LAB CHEMISTRY METHOD 01/18/2025 2:37 PM [facility] eGFR 93 >=60 mL/min/1. 73m2 LAB CHEMISTRY METHOD 01/18/2025 2:37 PM [facility] Comment:Calculation based on the Chronic Kidney Disease Epidemiology Collaboration (CKD-EPI) equation refit without adjustment for race. BUN/Creatinine Ratio 23.3 LAB CHEMISTRY METHOD 01/18/2025 2:37 PM EDT [facility] Calcium 9.9 8.5 - 10.5 mg/dL LAB CHEMISTRY METHOD 01/18/2025 2:37 PM EDT [facility] AST (SGOT) 24 10 - 42 unit/L LAB CHEMISTRY METHOD 01/18/2025 2:37 PM [facility] ALT (SGPT) 47 10 - 60 unit/L LAB CHEMISTRY METHOD 01/18/2025 2:37 PM EDT [facility] Alkaline Phosphatase 87 42 - 121 unit/L LAB CHEMISTRY [facility] Total Protein 7.1 6.0 - 8.0 g/dL LAB CHEMISTRY METHOD 01/18/2025 2:37 PM [facility] Albumin 3.8 3.2 - 5.0 g/dL LAB CHEMISTRY METHOD 01/18/2025 2:[facility] Total Bilirubin 0.7 0.0 - 1.4 mg/dL LAB CHEMISTRY METHOD 01/18/2025 2:[facility] Blood Venous blood specimen / Unknown Venipuncture / Unknown 01/18/2025 9:44 AM EDT 01/18/2025 9:44 AM EDT Piedad VELAZCO LAB BLOOD ORDERABLES Final Re sult [facility] [address] [place] [address], * Diabetes Foot Exam (07/25/2024) [facility] Diabetes: Annual Foot Exam Abstracted Historical Provider HEALTH MAINTENANCE Final Result * FIT-DNA (Cologuard) (03/30/2023) [facility] Colorectal Cancer Screening: FIT-DNA (Cologuard) No Interpretation , Abstracted Historical Provider HEALTH MAINTENANCE Final Result * DXA BONE DENSITY STUDY 1+ SITS AXIAL SKEL (08/06/2022 9:30 AM EDT) Anatomical Region Laterality Modality Bone Densitometr y 02/17/2022 8:51 AM EDT Narrative 08/07/2022 12:22 PM EDT BONE DENSITY (DEXA) Lumbar Spine T-score is [...] (World Health Organization Fracture Risk Assessment) [facility] Department of Internal Medicine recommends using National [...] alternative screening schedule based on ayanna Orlando., [facility] November 13, 2011 for patients [...] (World Health Organization Fracture Risk Assessment) [facility] Department of Internal Medicine recommendsusing National Osteoporosis [...] alternative screening schedule based on ayanna Orlando., NEJMJanuary 2011 for patients with osteopenia (based [...] Resu lt * Hepatitis C Screening (03/10/2013) [facility] Hepatitis C Screening Abstracted Historical Provider HEALTH MAINTENANCE Final Result from Last 3 Months or Most Recently Relevant to Health Maintenance Insurance [employer] MEDICARE Care Teams Upholstery Technician Relationship Specialty Start Date End Date Candy Vera MD [address] [place] [address] PCP - General Internal Medicine 04/18/21
--- OUTSIDE RECORDS SUMMARY | 2025-10-20 12:55 | XMS_ITS | Encounter Summary ---
Author Organization [facility] Prior to 08/26/2024 Address [address] [place] [address] Care Team Providers Care Lead Technical Writer Name Role Phone Nicole Van DO Primary Care Pro vider Unavailable Candy Vera MD Primary Care Provider [phone] Reason for Visit * Reason Comments E-prescribe Rx Request Encounter Details Date Type Department Care Team Description 10/07/2018 Refill Adult Medicine [address] [address] Jodi Angel PA-C E-prescribe Rx Request Social History Tobacco Use [...] encounter Miscellaneous Notes * Telephone Encounter - Devora Villegas M.A. - 10/07/2018 2:36 PM EST HCTZ, Losartan, and Pravastatin all filled on 07/06/18 for 90 days with 1 refill Flovent filled on 09/25/18 for 90 days with 3 refills Lab Results Component Value Date HGBA1C 7.3 06/25/2018 MALBUR 13.3 06/25/2018 MALBCR 10.5 06/25/2018 CHOL 191 02/24/2018 LDL 104 02/24/2018 HDL 55 02/24/2018 TRIG 164 02/24/2018 GLU 135 06/25/2018 CREAT 0.5 06/25/2018 * Telephone Encounter - Ady Pathak - 10/07/2018 1:45 PM EST MAIL ORDER REFILL REQUEST When was the patients last visit with PCP?: 03/01/18 When was the patients last visit in Medicine: 07/06/18 Does the patient have a future appointment? Patient was sent a My Chart request to set up an appointment as they are due. Is the doctor here today?: YES Is the med requested on the list?:Yes What mail order pharmacy does patient have?: [facility] Let the patient know that if their pharmacy is participating we will automatically route this mail order refill to them via their mail order pharmacy. Is the following the patients current home address: [address] [place] [address] Dr Leyla VARGAS [address] yes If their mail order pharmacy is NOT a participating pharmacy we can: Is this the patients current medical insurance carrier? Payor: [facility] / Plan: [facility] MED[facility] COMPLETE $20/$45 [facility] / Product Type: PPO [id number] YES documented in this encounter Plan of Treatment Not on file documented as of this encounter Visit Diagnoses Diagnosis Morbid obesity due to excess calories (HCC) Uncontrolled type 2 diabetes mellitus without complication, without long-term current use of insulin documented in this encounter Care Teams Lead Technical Writer Relationship Specialty Start Date End Date Nicole Van DO PCP - General Internal Medicine 01/08/15 04/17/21 Candy Vera MD [address] [place] [address] [place] [address] PCP - General Internal Medicine 04/18/21 documented as of this encounter
--- OUTSIDE RECORDS SUMMARY | 2025-10-20 12:56 | XMS_ITS | Encounter Summary ---
Author Organization [facility] Prior to 08/26/2024 Address [address] [facility] [place] [address] Care Team Providers Care Strategy Director Name Role Phone Kt Baires MD Primary Care Provider Unavailable Nicole Van DO Primary Care Pro vider Unavailable Candy Vera MD Primary Care Provider [phone] Encounter Details Date Type Department Care Team Description 04/05/2013 Baker Second Report Medical Records [address] [place] [address] Nica Taylor Social History Tobacco Use Types Packs/Day Years [...] on filedocumented in this encounter Care Teams Strategy Director Relationship Specialty Start Date End Date Kt Baires MD PCP - General Internal Medicine 11/05/1212/24 Nicole Van DO PCP - General Internal Medicine 01/08/15 04/17/21 Candy Vera MD [address] [place] [address] PCP - General Internal Medicine 04/18/21 documented as of this encounter
--- OUTSIDE RECORDS SUMMARY | 2025-10-20 12:56 | XMS_ITS | Encounter Summary ---
Author Organization [facility] Prior to 08/26/2024 Address [address] [place] [address] Care Team Providers Care Care Manager Cna Name Role Phone Candy Vera MD Primary Care Provider [phone] Encounter Details Date Type Department Care Team Description 02/28/2022 Patient Placement Coordinator Report Medical Records [address] [place] [address] Lico Castillo MD Social History Tobacco Use [...] Exposure Response Date Recorded In the last 10 days, have yo u been in contact with someone who was confirmed or suspected to have Coronavirus/COVID-19? No / Unsure 02/17/2022 8:22 AM EDT documented as of this encounter Plan of Treatment Not on file documented as of this encounter Visit Diagnoses Not on filedocumented in this encounter Care Teams Care Manager Cna Relationship Specialty Start Date End Date Candy Vera MD [address] [place] [address] PCP - General Internal Medicine 04/18/21 documented as of this encounter
--- OUTSIDE RECORDS SUMMARY | 2025-10-20 12:56 | XMS_ITS | Encounter Summary ---
Author Organization [facility] Prior to 08/26/2024 Address [address] [place] [address] Care Team Providers Care Locomotive Driver Name Role Phone Nicole Van DO Primary Care Pro vider Unavailable Candy Vera MD Primary Care Provider [phone] Reason for Visit * Reason Comments E-prescribe Rx Request Encounter Details Date Type Department Care Team Description 10/14/2019 Refill Adult Medicine [address] [address] Nicole Van DO E-prescribe Rx Request Social History Tobacco Use [...] encounter Miscellaneous Notes * Telephone Encounter - Gianna Rojas M.A. - 10/14/2019 1:26 PM EST Last ov 08/05/19 Lab Results Component Value Date HGBA1C 6.8 08/05/2019 MALBUR 18.4 04/11/2019 MALBCR 92.0 04/11/2019 CHOL 191 08/05/2019 LDL 91 08/05/2019 HDL 52 08/05/2019 TRIG 240 08/05/2019 GLU 131 08/05/2019 CREAT 0.66 08/05/2019 * Telephone Encounter - Smita Morin - 10/14/2019 11:41 AM EST Patient would like script to be: E-PRESCRIBED/FAXED TO PHARMACY WHEN WAS THE PATIENT'S LAST APPOINTMENT IN ADULT MEDICINE? 08/05/19 WHEN WAS THE LAST TIME THE PATIENT SAW THEIR PCP? 01/05/19 Does patient have an upcoming appointment? No-unable to reach left [facility] to call for appointment due to refill request. Appt due (THE MEDICATION REQUESTED IS ON THE MED [...] N/A Patients current insurance carrier is: Payor: [facility] / Plan: [facility] MEDICARE COMPLETE $15/$45 [facility] [id number] / Product Type: PPO [id number] documented in this encounter Plan of Treatment Not on file documented as of this encounter Visit Diagnoses Not on filedocumented in this encounter Care Teams Locomotive Driver Relationship Specialty Start Date End Date Nicole Van DO PCP - General Internal Medicine 01/08/15 04/17/21 Candy Vera MD [address] [place] [address] PCP - General Internal Medicine 04/18/21 documented as of this encounter
--- OUTSIDE RECORDS SUMMARY | 2025-10-20 12:56 | XMS_ITS | Encounter Summary ---
Author Organization [facility] Prior to 08/26/2024 Address [address] [place] [address] Care Team Providers Care Corporate Legal Secretary Name Role Phone Nicole Van DO Primary Care Pro vider Unavailable Candy Vera MD Primary Care Provider [phone] Encounter Details Date Type Department Care Team Description 04/17/2020 Pt. Non Urgent Medic al Question Adult Medicine [address] [address] Nicole Van DO Social History Tobacco Use Types Packs/Day Years [...] encounter Miscellaneous Notes * Telephone Encounter - Kayy Luong M.A. - 04/18/2020 8:39 AM EDTFrom: Alison Rider To: Nicole Bah DO Sent: 04/17/2020 9:26 PM EDT Subject: A1c & diet Thanks for your message.Will try harder on my diet . documented in this encounter Plan of Treatment Not on file documented as of this encounter Visit Diagnoses Not on filedocumented in this encounter Care Teams Corporate Legal Secretary Relationship Specialty Start Date End Date Nicole Van DO PCP - General Internal Medicine 01/08/15 04/17/21 Candy Vera MD [address] [place] [address] PCP - General Internal Medicine 04/18/21 documented as of this encounter
--- OUTSIDE RECORDS SUMMARY | 2025-10-20 12:56 | XMS_ITS | Encounter Summary ---
Author Organization [facility] Prior to 08/26/2024 Address [address] [facility] [place] [address] Care Team Providers Care Office Secretary Name Role Phone Candy Vera MD Primary Care Provider [phone] Encounter Details Date Type Department Care Team Description 07/09/2023 Vacuum Cleaner Repairer Report Medical Records [address] [place] [address] Nikole Goddard Social History Tobacco Use Types [...] on filedocumented in this encounter Care Teams Office Secretary Relationship Specialty Start Date End Date Candy Vera MD [address] [place], [place] [phone] PCP - General Internal Medicine 04/18/21 documented as of this encounter
--- OUTSIDE RECORDS SUMMARY | 2025-10-20 12:56 | XMS_ITS | Encounter Summary ---
Author Organization [facility] Prior to 08/26/2024 Address [address] [place] [address] Care Team Providers Care Envelope Machine Adjuster Name Role Phone Candy Vera MD Primary Care Provider [phone] Encounter Details Date Type Department Care Team Description 06/20/2021 Obstetrician/Gynecologist Report Medical Records [address] [place] [address] Nikole Goddard Social History Tobacco Use Types [...] have Coronavirus / COVID-19? No / Unsure 06/12/2021 8:46 AM EDT documented as of this encounter Plan of Treatment Not on file documented as of this encounter Visit Diagnoses Not on filedocumented in this encounter Care Teams Envelope Machine Adjuster Relationship Specialty Start Date End Date Candy Vera MD [address] [place] [address] PCP - General Internal Medicine 04/18/21 documented as of this encounter
--- OUTSIDE RECORDS SUMMARY | 2025-10-20 12:56 | XMS_ITS | Encounter Summary ---
Author Organization [facility] Prior to 08/26/[address] [facility] [place] [address] Care Team Providers Care Air Crew Officer Name Role Phone Nicole Van DO Primary Care Pro vider Unavailable Candy Vera MD Primary Care Provider [phone] Encounter Details Date Type Department Care Team Description 11/06/2017 Transfer Records Medical Records [address] [place] [address] Abstract, Provider Social History Tobacco Use Types Packs/Day Years [...] on filedocumented in this encounter Care Teams Air Crew Officer Relationship Specialty Start Date End Date Nicole Van DO PCP - General Internal Medicine 01/08/15 04/17/21 Candy Vera MD [address] [place] [phone] PCP - General Internal Medicine 04/18/21 documented as of this encounter
--- OUTSIDE RECORDS SUMMARY | 2025-10-20 12:56 | XMS_ITS | Encounter Summary ---
Author Organization [facility] Prior to 08/26/2024 Address [address] [place] [address] Care Team Providers Care Senior Core Java Developer Name Role Phone Nicole Van DO Primary Care Pro vider Unavailable Candy Vera MD Primary Care Provider [phone] Reason for Visit * Reason Comments E-prescribe Rx Request Encounter Details Date Type Department Care Team Description 08/14/2019 Refill Adult Medicine [address] [address] Nicole Van DO E-prescribe Rx Request Social [...] Telephone Encounter - Devora Villegas M.A. - 08/15/2019 11:07 AM EDT Lab Results Component Value Date HGBA1C 6.8 08/05/2019 MALBUR 18.4 04/11/2019 MALBCR 92.0 04/11/2019 CHOL 191 08/05/2019 LDL 91 08/05/2019 HDL 52 08/05/2019 TRIG 240 08/05/2019 GLU 131 08/05/2019 CREAT 0.66 08/05/2019 * Telephone Encounter - Jennifer Gamble - 08/15/2019 10:42 AM EDT Patient would like script to be: E-PRESCRIBED/FAXED TO PHARMACY WHEN WAS THE PATIENT'S LAST APPOINTMENT IN ADULT MEDICINE?08/05/19 WHEN WAS THE LAST TIME THE PATIENT SAW THEIR PCP? 01/05/19 Does patient have an upcoming appointment? No-unable to reach left [facility] to call for appointment due to refill request. Appt due 11/05/19 (THE MEDICATION REQUESTED IS ON THE MED [...] N/A Patients current insurance carrier is: Payor: [facility] / Plan: [facility] MEDIC[facility] COMPLETE $15/$45 [facility] [id number] / Product Type: PPO [id number] documented in this encounter Plan of Treatment Not on file documented as of this encounter Visit Diagnoses Not on filedocumented in this encounter Care Teams Senior Core Java Developer Relationship Specialty Start Date End Date Nicole Van DO PCP - General Internal Medicine 01/08/15 04/17/21 Candy Vera MD [address] [place] [address] PCP - General Internal Medicine 04/18/21 documented as of this encounter
--- OUTSIDE RECORDS SUMMARY | 2025-10-20 12:56 | XMS_ITS | Encounter Summary ---
Author Organization [facility] Prior to 08/26/2024 Address [address] [place] [address] Care Team Providers Care Gas Appliance Servicer Helper Name Role Phone Candy Vera MD Primary Care Provider [phone] Encounter Details Date Type Department Care Team Description 08/27/2022 Refill Adult Medicine [address] [address] Candy Vera MD [address] [place] [address] [id number] Social History Tobacco Use Types Packs/Day Years [...] was confirmed or suspected to have Coronavirus/COVID-19? Unable to assess 08/27/2022 10:38 AM EDT documented as of this encounter Plan of Treatment Not on file documented as of this encounter Visit Diagnoses Not on filedocumented in this encounter Care Teams Gas Appliance Servicer Helper Relationship Specialty Start Date End Date Candy Vera MD [address] [place] [id number] PCP - General Internal Medicine 04/18/21 documented as of this encounter
--- OUTSIDE RECORDS SUMMARY | 2025-10-20 12:56 | XMS_ITS | Encounter Summary ---
Author Organization [facility] Prior to 08/26/2024 Address [address] [place] [address] Care Team Providers Care Hotel Services Supervisor Name Role Phone Kt Baires MD Primary Care Provider Unavailable Nicole Van DO Primary Care Pro vider Unavailable Candy Vera MD Primary Care Provider [phone] Reason for Visit * Reason Onset Date Comments Work note 11/17/2012 Encounter Details Date Type Department Care Team Description 11/17/2012 Telephone Adult Medicine [address] [address] Jessa Whitmore PA-C Work note Social History Tobacco Use Types Packs/Day Years [...] encounter Miscellaneous Notes * Telephone Encounter - Makayla Vines M.A. - 11/18/2012 4:15 PM EST This note can not be faxed w/o realease i will place in ppu as orginally requested * Telephone Encounter - Kt Baires MD - 11/18/2012 3:11 PM EST Letter done. Can this be faxed to the number below? * Telephone Encounter - Keturah CanadaP.NLeonard - 11/18/2012 2:33 PM EST Per Jessa Whitmore PA-C this needs to be completed by Dr. Meraz who saw the pt 11/12/12. * Telephone Encounter - Vanessa Carrasquillo - 11/18/2012 11:33 AM EST Patient is calling back she need for her work note to be dated for 11/11/12- , returning back to work on 11/18/12, patient is requesting that we fax it to her work place, there fax number is [phone], she is the only one in the office * Telephone Encounter - Keturah Zamora L.P.N. - 11/17/2012 11:57 AM EST To Jessa for tomorrow letter has been pended in letters tab. Edit as needed, approve and print. thank you. * Telephone Encounter - Africa Alcala - 11/17/2012 11:50 AM EST Work note is for: OUT WORK NOTE Has patient been seen for the reason they were absent from work? Yes For what medical reason was/is patient out of work?: WHEEZING If Yes, by whom?: JESSA WHITMORE Date patient seen: 11/08/2012 What dates does the patient need the note to cover: Beginning date: 11/08/2012 End Date: 11/11/2011 If note for return to work, what is return date: 11/12/2012 If note is to return to work, are there restrictions? No. If yes, list: Patient would like note to be: Placed in patient picket labor union documented in this encounter Plan of Treatment Not on file documented as of this encounter Visit Diagnoses Not on filedocumented in this encounter Care Teams Hotel Services Supervisor Relationship Specialty Start Date End Date Kt Baires MD PCP - General Internal Medicine 11/05/1212/24 Nicole Van DO PCP - General Internal Medicine 01/08/15 04/17/21 Candy Vera MD [address] [place] [address] PCP - General Internal Medicine 04/18/21 documented as of this encounter
--- OUTSIDE RECORDS SUMMARY | 2025-10-20 12:56 | XMS_ITS | Encounter Summary ---
Author Organization [facility] Prior to 08/26/2024 Address [address] [place] [address] Care Team Providers Care Syrup Maker Cook Name Role Phone Nicole Van DO Primary Care Pro vider Unavailable Candy Vera MD Primary Care Provider [phone] Encounter Details Date Type Department Care Team Description 05/26/2019 Sheet Metal Assembler And Riveter Report Medical Records [address] [place] [address] Nikole Goddard Social History Tobacco Use Types [...] on filedocumented in this encounter Care Teams Syrup Maker Cook Relationship Specialty Start Date End Date Nicole Van DO PCP - General Internal Medicine 01/08/15 04/17/21 Candy Vera MD [address] [place] [id number] PCP - General Internal Medicine 04/18/21 documented as of this encounter
--- OUTSIDE RECORDS SUMMARY | 2025-10-20 12:56 | XMS_ITS | Encounter Summary ---
Author Organization [facility] Prior to 08/26/2024 Address [address] [place] [address] Care Team Providers Care Clay Caster Name Role Phone Nicole Van DO Primary Care Pro vider Unavailable Candy Vera MD Primary Care Provider [phone] Reason for Referral * Non KHOI (Routine) - Closed Specialty Diagnoses / Procedures Referred By Ramon camara Referred To Contact Podiatry Procedures REFERRAL TO PODIATRY Nicole Van DO [address] [place] [address] Pod/[address] [address] Referral ID Status Reason Start Date Expiration Date Visits Re quested Visits Authorized [id number] Closed 05/06/2018 05/06/2019 1 1 Encounter Details Date Type Department Care Team Description 05/06/2018 Orders Only Adult Medicine [place] [facility] [address] [id number] Nicole Van DO Social History Tobacco Use [...] on filedocumented in this encounter Care Teams Clay Caster Relationship Specialty Start Date End Date Nicole Van DO PCP - General Internal Medicine 01/08/15 04/17/21 Candy Vera MD [address] [place] [address] [phone] PCP - General Internal Medicine 04/18/21 documented as of this encounter
--- OUTSIDE RECORDS SUMMARY | 2025-10-20 12:56 | XMS_ITS | Encounter Summary ---
Author Organization [facility] Prior to 08/26/2024 Address [address] [place] [address] Care Team Providers Care Chinese Instructor Name Role Phone Nicole Van DO Primary Care Pro vider Unavailable Candy Vera MD Primary Care Provider [phone] Encounter Details Date Type Department Care Team Description 02/28/2019 Pt. Non Urgent Medic al Question Adult Medicine [address] [address] Nicole Van DO Social History Tobacco Use [...] on file documented as of this encounter Progress Notes * Kayy Luong M.A. - 02/28/2019 10:41 AM EDTFrom: Alison Rider To: Nicole Bah DO Sent: 02/28/2019 10:40 AM EDT Subject: Refill on diabetic supplies I need refill on accu-Donna softclix lanc dev .I use [facility] . Thanks documented in this encounter Plan of Treatment Not on file documented as of this encounter Visit Diagnoses Not on filedocumented in this encounter Care Teams Chinese Instructor Relationship Specialty Start Date End Date Nicole Van DO PCP - General Internal Medicine 01/08/15 04/17/21 Candy Vera MD [address] [place] [address] PCP - General Internal Medicine 04/18/21 documented as of this encounter
--- OUTSIDE RECORDS SUMMARY | 2025-10-20 12:56 | XMS_ITS | Encounter Summary ---
Author Organization [facility] Prior to 08/26/2024 Address [address] [place] [address] Care Team Providers Care Movement Assembler Name Role Phone Nicole Van DO Primary Care Pro vider Unavailable Candy Vera MD Primary Care Provider [phone] Encounter Details Date Type Department Care Team Description 08/12/2019 Orders Only Pulmonology - [place] [address] [facility] [address] [place] [phone] Mic Benjamin MD [address] [facility] [address] [place] [address] Mild persistent asthma with acute exacerbation; Obstructive sleep apnea moderate overall AHI 25; severe in REM AHI 57; Sleep-related hypoventilation; 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 oxygen therapy; Severe obesity (BMI 35.0-35.9 with comorbidity) ([facility]); Post-nasal drainage Social History Tobacco Use Types Packs/Day Years [...] on file documented as of this encounter Procedures Procedure Name Priority Date/Time Associated Diagnosis Comments CHG RADIOLOGIC EXAM CHEST 2 VIEWS Routine 08/12/2019 Mild persistent asthma with acute exacerbation Obstructive sleep apnea moderate overall AHI 25; severe in REM AHI 57 Sleep-related hypoventilation 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 oxygen therapy Severe obesity (BMI 35.0-35.9 with comorbidity) (HCC) Post-nasal drainage documented in this encounter Results * RADIOLOGIC EXAM CHEST 2 VIEWS (08/12/2019) Narrative Authorizing Provider Result Carlos Benjamin MD RADIOLOGY documented in this encounter Visit Diagnoses Diagnosis Mild persistent asthma with acute exacerbation Unspecified asthma, with exacerbation Obstructive sleep apnea moderate overall AHI 25; severe in REM AHI 57 Obstructive sleep apnea (adult) (pediatric) Sleep-related hypoventilation Other organic sleep apnea 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 oxygen therapy Severe obesity (BMI 35.0-35.9 with comorbidity) (HCC) Obesity, unspecified Post-nasal drainage Unspecified sinusitis (chronic) documented in this encounter Care Teams Movement Assembler Relationship Specialty Start Date End Date Nicole Van DO PCP - General Internal Medicine 01/08/15 04/17/21 Candy Vera MD [address] [place] [address] PCP - General Internal Medicine 04/18/21 documented as of this encounter
--- OUTSIDE RECORDS SUMMARY | 2025-10-20 12:56 | XMS_ITS | Encounter Summary ---
Author Organization [facility] Prior to 08/26/2024 Address [address] [place] [address] Care Team Providers Care Nuclear Medicine Officer Name Role Phone Nicole Van DO Primary Care Pro vider Unavailable Candy Vera MD Primary Care Provider [phone] Encounter Details Date Type Department Care Team Description 05/23/2017 Pt. Non Urgent Medic al Question Cardiology - [address] [address] Calin Kirkland MD Social History Tobacco Use Types Packs/Day [...] as of this encounter Progress Notes * Kaylyn Quinteros L.P.N. - 05/25/2017 10:37 AM EDTFrom: Alison Rider To: Calin Kirkland MD Sent: 05/23/2017 12:16 PM EDT Subject: Cancel appointment Please cancel appointment on may .Thank you. documented in this encounter Plan of Treatment Not on file documented as of this encounter Visit Diagnoses Not on filedocumented in this encounter Care Teams Nuclear Medicine Officer Relationship Specialty Start Date End Date Nicole Van DO PCP - General Internal Medicine 01/08/15 04/17/21 Candy Vera MD [address] [place] [address] PCP - General Internal Medicine 04/18/21 documented as of this encounter
--- OUTSIDE RECORDS SUMMARY | 2025-10-20 12:56 | XMS_ITS | Encounter Summary ---
Author Organization [facility] Prior to 08/26/2024 Address [address] [place] [address] Care Team Providers Care Supply Chain Generalist Name Role Phone Nicole Van DO Primary Care Pro vider Unavailable Candy Vear MD Primary Care Provider [phone] Reason for Referral * Non KHOI (Routine) - Closed Specialty Diagnoses / Procedures Referred By Ramon camara Referred To Contact Cardiology Procedures REFERRAL TO CARDIOLOGY Nicole Van DO [address] [place] [address] Cardio/[place] [address] Referral ID Status Reason Start Date Expiration Date V isits Requested Visits Authorized 12/26 [id number] Closed 10/22/2016 10/22/2017 1 1 Encounter Details Date Type Department Care Team Description 10/22/2016 Orders Only [place] [address] Nicole Van DO Social History Tobacco Use [...] on filedocumented in this encounter Care Teams Supply Chain Generalist Relationship Specialty Start Date End Date Nicole Van DO PCP - General Internal Medicine 01/08/15 04/17/21 Candy Vera MD [address] [place] [address] [id number] PCP - General Internal Medicine 04/18/21 documented as of this encounter
--- OUTSIDE RECORDS SUMMARY | 2025-10-20 12:56 | XMS_ITS | Encounter Summary ---
Author Organization [facility] Prior to 08/26/2024 [facility] [address] [facility] [place] [address] Care Team Providers Care Beam Carrier Hauler Pusher Name Role Phone Nicole Van DO Primary Care Pro vider Unavailable Candy Vera MD Primary Care Provider [phone] Encounter Details Date Type Department Care Team Description 05/31/2020 SCAN Medical Records [address] [place] [address] Abstract, Provider Social History Tobacco Use Types [...] on filedocumented in this encounter Care Teams Beam Carrier Hauler Pusher Relationship Specialty Start Date End Date Nicole Van DO PCP - General Internal Medicine 01/08/15 04/17/21 Candy Vera MD [address] [place] [address] [id number] PCP - General Internal Medicine 04/18/21 documented as of this encounter
--- OUTSIDE RECORDS SUMMARY | 2025-10-20 12:56 | XMS_ITS | Encounter Summary ---
Author Organization [facility] Prior to 08/26/2024 Address [address] [facility] [place] [address] Care Team Providers Care Senior Product Marketing Manager Name Role Phone Kt Baires MD Primary Care Provider Unavailable Nicole Van DO Primary Care Pro vider Unavailable Candy Vera MD Primary Care Provider [phone] Encounter Details Date Type Department Care Team Description 04/19/2014 Multimedia Instructional Designer Report Medical Records [address] [place] [address] Nica Taylor Social History Tobacco Use Types [...] filedocumented in this encounter Care Teams Senior Product Marketing Manager Relationship Specialty Start Date End Date Kt Baires MD PCP - General Internal Medicine 11/05/1212/24 Nicole Van DO PCP - General Internal Medicine 01/08/15 04/17/21 Candy Vera MD [address] [place] [id number] PCP - General Internal Medicine 04/18/21 documented as of this encounter
--- OUTSIDE RECORDS SUMMARY | 2025-10-20 12:56 | XMS_ITS | Encounter Summary ---
Author Organization [facility] Prior to 08/26/2024 Address [address] [facility] [place] [address] Care Team Providers Care Systems Qa Analyst Name Role Phone Nicole Van DO Primary Care Pro vider Unavailable Candy Vera MD Primary Care Provider [phone] Encounter Details Date Type Department Care Team Description 08/01/2019 Strategic Analyst Report Medical Records [address] [place] [address] Cristy Rodriguez MD [address] [place] [address] [id number] Social History Tobacco Use Types Packs/Day Years [...] on filedocumented in this encounter Care Teams Systems Qa Analyst Relationship Specialty Start Date End Date Nicole Van DO PCP - General Internal Medicine 01/08/15 04/17/21 Candy Vera MD [address] [place] [address] PCP - General Internal Medicine 04/18/21 documented as of this encounter
--- OUTSIDE RECORDS SUMMARY | 2025-10-20 12:56 | XMS_ITS | Encounter Summary ---
Author Organization [facility] Prior to 08/26/2024 Address [address] [place] [address] Care Team Providers Care Machine Feed Operator Name Role Phone Nicole Van DO Primary Care Pro vider Unavailable Candy Vera MD Primary Care Provider Encounter Details Date Type Department Care Team Description 05/01/2017 Pt. Non Urgent Medical Question Pulmonology [address] [place] [address] Reyna Rai FNP [address] [place] [address] Social History Tobacco Use Types Packs/Day Years [...] as of this encounter Progress Notes * Lynn Zamora L.P.N. - 05/01/2017 4:01 PM EDTFrom: Alison Rider To: NATALYA Manzano Sent: 05/01/2017 3:55 PM EDT Subject: sleep study please call me on cell phone, as house phone has no answering machine .Cell #[id number] documented in this encounter Plan of Treatment Not on file documented as of this encounter Visit Diagnoses Not on filedocumented in this encounter Care Teams Machine Feed Operator Relationship Specialty Start Date End Date Nicole Van DO PCP - General Internal Medicine 01/08/15 04/17/21 Candy Vera MD [address] [place] [id number] PCP - General Internal Medicine 04/18/21 documented as of this encounter
--- OUTSIDE RECORDS SUMMARY | 2025-10-20 12:56 | XMS_ITS | Encounter Summary ---
Author Organization [facility] Prior to 08/26/2024 Address [address] [place] [address] Care Team Providers Care Giving Officer Name Role Phone Nicole Van DO Primary Care Pro vider Unavailable Candy Vera MD Primary Care Provider [phone] Encounter Details Date Type Department Care Team Description 04/12/2019 Refill Adult Medicine [address] [address] Jodi Angel PA-C Social History Tobacco Use Types Packs/Day Years [...] Telephone Encounter - Devora Villegas M.A. - 04/13/2019 7:03 AM EDT Please sign, went to the wrong pharmacy. * Telephone Encounter - Devora Villegas M.A. - 04/13/2019 7:00 AM EDTFrom: Alison Rider To: Jodi Angel PA-C Sent: 04/12/2019 5:14 PM EDT Subject: Medication Renewal Request Original authorizing provider: JOSIE Sandovalinez Yatestz would like a refill of the following medications: metformin (GLUCOPHAGE-XR) 500 MG 24 hr tablet [Jodi Angel PA-C] Preferred pharmacy: [facility] - [address] Comment: Metformin script needs to go to [facility] of [facility]. Thanks documented in this encounter Plan of Treatment Not on file documented as of this encounter Visit Diagnoses Diagnosis Uncontrolled type 2 diabetes mellitus without complication, without long-term current use of insulin documented in this encounter Care Teams Giving Officer Relationship Specialty Start Date End Date Nicole Van DO PCP - General Internal Medicine 01/08/15 04/17/21 Candy Vera MD [address] [place] [id number] PCP - General Internal Medicine 04/18/21 documented as of this encounter
--- OUTSIDE RECORDS SUMMARY | 2025-10-20 12:56 | XMS_ITS | Encounter Summary ---
Author Organization [facility] Prior to 08/26/[address] [facility] [place] [address] Care Team Providers Care Electrical Products Sales Engineer Name Role Phone Nicole Van DO Primary Care Pro vider Unavailable Candy Vera MD Primary Care Provider [phone] Encounter Details Date Type Department Care Team Description 05/31/2020 Orders Only Medical Records [address] [place] [address] Nicole Van DO Social History Tobacco Use [...] Procedure Name Priority Date/Time Associated Diagnosis Comments OUTSIDE LAB Routine 05/30/2020 documented in this encounter Results * OUTSIDE LAB (05/30/2020) Nicole Bah DO LAB documented in this encounter Visit Diagnoses Not on filedocumented in this encounter Care Teams Electrical Products Sales Engineer Relationship Specialty Start Date End Date Nicole Van DO PCP - General Internal Medicine 01/08/15 04/17/21 Candy Vera MD [address] [place] [id number] PCP - General Internal Medicine 04/18/21 documented as of this encounter
--- OUTSIDE RECORDS SUMMARY | 2025-10-20 12:56 | XMS_ITS | Encounter Summary ---
Author Organization [facility] Prior to 08/26/2024 Address [address] [place] [address] Care Team Providers Care Bus And Rail Operator Name Role Phone Nicole Van DO Primary Care Pro vider Unavailable Candy Vera MD Primary Care Provider [phone] Encounter Details Date Type Department Care Team Description 12/21/2016 SCAN Medical Records [address] [place] [address] Abstract, Provider Wheezing; Shortness of breath; Morbid obesity due to excess calories (HCC) Social History Tobacco Use Types Packs/Day Years [...] Name Priority Date/Time Associated Diagnosis Comments CHG BLOOD GASES ANY COMBINATION PH PCO2 PO2 CO2 HCO3 Routine 12/21/2016 12:30 PM EST Wheezing Shortness of breath Morbid obesity due to excess calories (HCC) documented in this encounter Results * ASSAY, BLOOD GASES: PH/PO2/PCO2/ETC (12/21/2016 12:30 PM EST) 12/21/2016 12:3 0 PM EST Mic Junior Weaver MD LAB [facility] documented in this encounter Visit Diagnoses Diagnosis Wheezing Shortness of breath Morbid obesity due to excess calories (HCC) documented in this encounter Care Teams Bus And Rail Operator Relationship Specialty Start Date End Date Nicole Van DO PCP - General Internal Medicine 01/08/15 04/17/21 Candy Vera MD [address] [place] [phone] PCP - General Internal Medicine 04/18/21 documented as of this encounter
--- NOTE | 2025-10-20 13:00 | A.OFFVIS_ITS ---
Vital Signs 10/20/25 13:01 Height 5 ft 1 in Weight 186 lb 4.65 oz BMI 35.2 BP 120/58 L Blood Pressure Location Lt brachial Position Sitting Pulse 105 H Pulse Source Pulse Oximeter Pulse Oximetry (%) 94 Oxygen Delivery Method Room Air Intake Visit Reasons: Pt states bronchitis Saddle And Side Wire Stitcher Required: No Overseamer: Overseamer offered & declined Accompanied by: Self / Same As Patient Allergies Latex Allergy (Severe, Uncoded 09/20/24 09:55) Anaphylaxis HPI Comments Details: The patient is a 75-year-old woman with a known history of asthma in addition to obstructive sleep apnea and obesity hypoventilation syndrome. She has been stable on Flovent and ProAir. However, her Flovent is very expensive and she cannot afford to take care. She has been noticing worsening shortness of breath having to use a rescue inhaler at least once a day. She does developed cough in addition to dyspnea on exertion. Mlxk-sc-yryxaiht severity. Denies any recent use of prednisone hospitalizations for any flares. At nighttime she does use oxygen. She did have an overnight oximetry demonstrating that she spent 12 minutes below 88%. Therefore, she was started on oxygen at 2 L at night and sees to be affecting beneficial. She does get this through [facility]. In addition to that she did have a chest x-ray which was personally reviewed by me demonstrating what appears to be some calcifications to the hilar lymph nodes in addition to his like increased cardiac silhouette. 09/16/2022 the patient is here for a pulmonary follow-up visit. The patient overall is doing well. She recently returned from a 2-3 week cruise. She did very well initially but then she came back and said started developing worsening cough and shortness of breath. She became very fatigue after the prolonged cruise. Now she is back to her baseline. She is using her inhaler. Because of her ongoing symptoms the patient did call and she was sent prednisone antibiotics which she has now completed. She also was treated for COVID with PACs Flovent which she tolerated well. Now she is considering another cruise sometime in the springtime to go to [facility] [address]. She is wondering if she can tolerate such a long cruise again specially since she had a hard time with this 1. Therefore, will have her come back to our office for an evaluation prior to that cruise ship and making sure that she has all the medications available for a safe trip. She has been using the CPAP. The CPAP therapy continues to be affecting beneficial. She does use it for more than 4 hours a night. She is considering a travel CPAP. At this point the patient does not need 1 but she can always consider buying 1 and I will give her prescription. The patient also had a chest x-ray back in January 2022 demonstrating no acute disease. 01/27/2023 the patient is here for a pulmonary follow-up visit. The p atient overall doing very well. She has continued to tolerate the CPAP. The CPAP therapy continues to be affecting beneficial. She does use it more than 4 hours a night. Her AHI is down to about 1.5. Therefore will continue the current settings. She likes her mask although the nasal pillows to bother her nares a little bit. The date does not bother her enough to change her mask at this time. If they do start bothering her we can try cradle mask instead. She will let me know. She continues use the inhalers with good effect. She has a planned trip to [facility] and also several cruises over the summer. She is going to be mindful about COVID-19 since she got COVID during her last trip. She will have a 95 masks will be careful with crowds. She is concerned about her cough. Will give her cough medication for her to be able to use effectively specially when she is traveling and also during the daytime. 09/24/2023 the patient is here for pulmonary follow-up visit. Overall she is feeling better. She went on 3 [place] back to back and she did get sick when she was on her last screws. She went to seek medical care at the [facility]. She was given nebulized therapy in addition to additional medications. She overall feels better. She is continues uses Symbicort twice a day. Still still having a dry cough and sometimes some chest tightness. Will go ahead and optimize respiratory therapy from Symbicort to Breztri at this time. In addition to that she does have her albuterol and has a rescue nebulizer that she can use as needed. She already got vaccinated for pneumonia and also COVID and flu. She does need to get her ARDS the vaccine. I did encourage her to wait to next week to make sure that she was fully better before doing so. 09/20/2024 the patient is here for pulmonary follow-up visit. The patient overall has been doing well. She did go on a cruise and was sick. She did require antibiotics during that episode. Now she is back to her baseline. She is using her inhalers with good effect. No recent imaging studies to review. In the meantime she continues use her CPAP. CPAP therapy has been affecting beneficial. She does use it for more than 4 hours a night. The patient has an adequate AHI based on her CPAP use. No need to adjust the pressures. She is wondering about a travel CPAP. At this point I did show her a few options but these would have to be costly options that she would have to buy her own. She will consider. Again was give her a prescription for 1 if she decides to by 1. She will return 6 months and will reassess her respiratory issues specially prior to her next cruise travel plans. 03/23/2025 the patient is here for pulmonary follow-up visit. Overall the patient has been doing well. She continues uses CPAP every night. CPAP therapy has been affecting beneficial. She does use it for more than 4 hours a night. She is using a mask that sometimes feels like she is bothered by it. She wants to try new mask. I will go ahead and request an N30 I AirTouch mask kit for her so she can find her eye size. Currently she uses extra small. Will request the mask from her current [employer] company, [employer]. She will keep the same settings from the CPAP. In meantime asthma has been stable. She has not had to use her albuterol inhaler which is reassuring. Her last chest x-ray was back in 2021 which is without any acute disease or therefore no additional imaging studies warranted. She still has some shortness of breath with activity but minimal and it does get better when she rests. She will monitor closely her symptoms and they worsen she will call. Otherwise will follow-up in a year's time. 10/20/2025 the patient is here for sick visit. She started developing worsening cough about a week ago. She did have some fevers and chills but they subsided now. It was likely the flu. She still has a croupy cough. The patient also complains of sore throat. Denies any significant shortness of breath or wheezing. She has been using the Breztri inhaler. She also has a rescue inhaler that she has not required. Will go ahead and give her a course of azithromycin to treat her for laryngotracheitis and also she can continue with her cough medications. The patient does continue to use his CPAP. At this point is hard for her to use the CPAP while dealing with a sickness. [facility] Medical History (Updated 10/20/25 @ 13:15 by Lico Castillo MD) Hyperlipidemia Hypertension, essential Diabetes mellitus type 2, controlled SACHIN (obstructive sleep apnea) Nocturnal hypoxemia Cardiomegaly Asthma-COPD overlap syndrome Family History (System 12/15/23 @ 07:36 by Jemima Camara) Other SACHIN (obstructive sleep apnea) Social History Patient Tobacco Use Status: Never used Tobacco Review of Systems Const Denies daytime sleepiness and Denies night sweats ENT Denies change in voice, Denies lip swelling, Denies mouth pain, Reports nasal congestion, Reports nasal discharge and Denies tongue swelling Card Denies chest pain and Denies dyspnea on exertion Resp Reports chest congestion, Reports cough, Denies dyspnea on exertion and Reports wheezing GI Denies abdominal pain Musc Denies no additional complaints Neuro Denies Neuro-related abnormal movements Psych Denies no additional complaints Aly/Lymph Denies easy bleeding and Denies lymphadenopathy Aller/Immun Denies lip swelling, Denies tongue swelling and Reports wheezing Physical Exam Vital Signs: Last Vital Signs Pulse 105 H 10/20/25 13:01 BP 120/58 L 10/20/25 13:01 Pulse Ox 94 10/20/25 13:01 Oxygen Delivery Method Room Air 10/20/25 13:01 BMI result Body Mass Index 35.2 Const General: alert Eyes Pupils: Equal, round and reactive pupils present Neck Neck: Yes normal visual inspection, Yes full ROM and Yes no lymphadenopathy Chest Chest palpation & inspection: normal inspection of the chest Resp Auscultation: rhonchi, no wheezes and diminished lung sounds Cardio Rate: regular rate Rhythm: regular rhythm Heart sounds: S1 normal heart sound present and S2 normal heart sound present GI Palpation (GI): Soft to palpation and nontender Auscultation: normal bowel sounds Skin General skin exam: rashes and/or lesions noted Neuro Cranial nerves: Yes Equal, round and reactive pupils present Assessment & Plan Assessment & Plan (1) Asthma-COPD overlap syndrome: Code(s): J44.9 - Chronic obstructive pulmonary disease, unspecified Category: Medical (2) SACHIN (obstructive sleep apnea): Code(s): G47.33 - Obstructive sleep apnea (adult) (pediatric) Category: Medical (3) Laryngotracheitis: Code(s): J04.2 - Acute laryngotracheitis Category: Medical Plan Continue APAP therapy, change mask N30i airtouch continue Breztri Allergy therapy as needed cough medicines SARAH as needed start Zpack F/U 8-12 months Medications: New azithromycin 500 mg PO DAILY 5 tabs 0RF 5 days tobramycin-dexamethasone 0.3-0.05 % 1 drp ophthalmic-Right Q6H 10 days 5 mL 0RF bacitracin 1 appl ophthalmic-Right Q8H 3.5 grams 0RF 7 days Refilled eorevvlwgl-qyuighdo-fngzyahymf 160-9-4.8 mcg/actuation (Breztri Aerosphere) 2 inhalations PO BID 10.7 grams 11RF codeine-guaifenesin 10-100 mg/5 mL 10 mL PO Q6H PRN 300 mL 0RF cough 10 days benzonatate 200 mg PO BID PRN 60 caps 3RF cough 30 days Coding Level of Care Code Est Pt Level 4 (15579) Diagnoses Asthma-COPD overlap syndrome J44.9 SACHIN (obstructive sleep apnea) G47.33 Laryngotracheitis J04.2 Time Spent (min) 16
[2025-10-20 13:01] VITALS: BP 120/58; PULSE 105; O2SAT 94; BMI 35.2
== END 2025-10-20 13:22 | disposition home or self-care (01) ==
LOC: HO.HPS 12:52
PROVIDERS: PCP Internal Medicine; Visit Provider Hospitalist
DX: J44.9 Chronic obstructive pulmonary disease, unspecified (principal); G47.33 Obstructive sleep apnea (adult) (pediatric); J04.2 Acute laryngotracheitis
CPT/HCPCS: 99214

== ENCOUNTER → 2025-10-20 12:52 | Outpatient (BNVA) | payer MEDICARE, SELFPAY | PROVIDERS: PCP Internal Medicine; Visit Provider Hospitalist | DX: J04.2 Acute laryngotracheitis (principal); G47.33 Obstructive sleep apnea (adult) (pediatric); Z99.89 Dependence on other enabling machines and devices; J44.9 Chronic obstructive pulmonary disease, unspecified | CPT/HCPCS: 99212 ==